=== PATIENT | female | born 1945 | race Caucasian/White ===

== ENCOUNTER 2019-06-30 20:16 | Inpatient (IN) | payer MEDICARE, OTHER ==
[~2019-06-30] VITALS: Ht 167.6 cm; Wt 49.0 kg
[~2019-06-30 20:16] MED LIST: AMLO5TAB10 PO; ASCO500C PO; ASPI81TA50 PO; CARV6.2511 PO; DIVA500T2 PO; DONE10TA7 PO; L-THYROXINE; MEMA10TA PO; MULT-650 PO; SOLI5TAB2 PO; VITA1TAB19 PO; [UNRECOGNIZED DRUG - OTHER]; [UNRECOGNIZED DRUG - OTHER]
[2019-06-30 21:30] VITALS: BP 174/94
[2019-06-30] MEDS ORDERED: fentaNYL PF VIAL 100 MCG/2 ML VIAL IVP PRN (22:15)
[2019-06-30] MEDS ORDERED: hydrALAZINE 20 MG/ML VIAL. IVP PRN (22:15)
[2019-06-30] MEDS: IV NORMAL SALINE 1000ML BAG 1,000 ML IV SCH (22:26)
[2019-06-30 23:00] VITALS: BP 149/86
[2019-07-01] VITALS (10 sets, daily range): BP systolic 94–166; BP diastolic 49–80
[2019-07-01] MEDS ORDERED: MORPHINE SULFATE 5 MG, KETOROLAC 30MG VIAL 30 MG, ROPIVacaine 0.5% PF 60 ML, EPINEPHrin... INT ART ONE ×5 (07:30)
[2019-07-01] MEDS ORDERED: ONDANSETRON PF 4 MG/2 ML VIAL. ONE (07:33)
[2019-07-01] MEDS ORDERED: PROPOFOL 20 ML IV ONE (07:33)
[2019-07-01] MEDS ORDERED: DEXAMETHASONE SOD PHOS 4 MG/ML VIAL ONE (07:33)
[2019-07-01] MEDS ORDERED: LIDOCAINE 2% PF 5 ML VIAL. ONE (07:33)
[2019-07-01] MEDS ORDERED: fentaNYL PF VIAL 250 MCG/5 ML VIAL ONE (07:36)
--- NOTE | 2019-07-01 08:09 | PDOC4 ---
Operative Note Operative Note Due to procedure: 07/01/2019 Surgeon: Robert Reyes.: Tabatha Parmar, [employer] certified internetwork expert Preoperative diagnosis: Closed, displaced, comminuted, left intertrochanteric h ip fracture Postoperative diagnosis: Same Procedure performed: Closed reduction and intramedullary nailing of left hip fracture Anesthesia: Gen. Findings: Acute fracture Blood loss: 200mL Complications: none Components inserted: 10 x 18 Moctezuma and nephew [employer] InterTAN 125 femoral nail, 105 mm lag screw, 100 mm compression screw, distal interlocking screw Reason for procedure: Patient is a very pleasant 74 yo female with dementia who had a ground-level fall sustaining the above injury. Id seen her in consultation, please see my consult note for full details. We have discussed the risks, benefits, and alternatives to the above surgery and family wished to proceed. Description of procedure: Patient was greeted in the preoperative area by myself for the correct extremity was verified and marked. She was taken to the operative suite and her antibiotics were started as she was brought back. Once in the operating room, she underwent successful induction of a general anesthetic and was then transferred gently supine to the fracture table. She was placed into the appropriate position, left leg in a traction ski boot and right leg in the well-leg adamson. Padded perineal post was used. Her arms were secured above her chest across a pillow. I then brought in C-arm and perform a reduction maneuver confirming adequate reduction under biplanar fluoroscopy. After this, the left hip and leg were prepped and draped in our usual sterile fashion and we conducted our standard preoperative timeout. After this, I palpated for her greater trochanter and ASIS and robert a line on skin at the intersection point of these, I then made my skin incision and bluntly dissected down to the tip of the greater trochanter and used biplanar fluoroscopy to identify an appropriate starting point for my guidepin which I then advanced down past the lesser trochanter. I then gained entry to the proximal femur with the entry reamer using the soft tissue protector. After this I impacted my nail and position using fluoroscopy as a guide. I then placed the lateral trocar again skin, and incised skin in accordance with this and bluntly split down to bone. I then seated the trochars and used biplanar fluoroscopy to achieve as close to a center center position with the tip of my guidepin as I was able to. I then used my lateral entry drill and then placed my derotation bar. I then measured and drilled for my leg screw. After this I placed my leg screw followed by my compression screw. I then removed this trocar and placed the distal interlocking screw trocar again skin and made a stab incision and spread down to bone. I then seated this trocar and drilled and measured and then subsequently placed my distal interlocking screw. I then remove the insertion handle and trochars and took my final images. I was satisfied with fracture reduction and hardware position. The wounds were thoroughly irrigated. I injected my periarticular m ixture into the eleonora-incisional soft tissues. Deep layers were closed with simple interrupted 0 Vicryl. Inverted interrupted 2-0 Vicryl was used for subcutaneous tissue and archana for skin. Sterile dressing was applied after the hip and leg were cleansed and dried. Traction was released after placement of the distal interlocking screw. The bed was reassembled and the perineal post was removed. She was laid gently supine on the fracture table. She was transferred gently supine to the hospital bed and taken to PACU in a stable and extubated condition. Postoperative plan is to allow full weightbearing. She will receive DVT and antibiotic prophylaxis. Shell be readmitted to the hospitalist and will also receive PT and OT. ROBERT WATTS II, MD Jul 01, 2019 08:09
[2019-07-01] MEDS ORDERED: SEVOFLURANE 61 TO 120 MINUTES. IH ONE (08:40)
[2019-07-01] MEDS ORDERED: IV RINGERS,LACTATED 1000ML 1,000 ML IV SCH (08:43)
[2019-07-01] MEDS ORDERED: fentaNYL PF VIAL 100 MCG/2 ML VIAL IV PRN ×2 (08:45)
[2019-07-01] MEDS ORDERED: HYDROmorphone 2 MG/ML VIAL IV PRN (08:45)
[2019-07-01] MEDS ORDERED: MORPHINE SULFATE 2 MG/ML VIAL. IV PRN (08:45)
[2019-07-01] MEDS ORDERED: LIDOCAINE 1% PF 2 ML VIAL. ID PRN (08:45)
[2019-07-01] MEDS ORDERED: PROCHLORPERAZINE 10 MG/2 ML VIAL. IV PRN (08:45)
[2019-07-01] MEDS ORDERED: ONDANSETRON PF 4 MG/2 ML VIAL. IV PRN (08:45)
--- NOTE | 2019-07-01 09:08 | PDOC2 ---
CONSULT Date of Consult Date of Consult DATE: 07/01/19 TIME: 08:12 Reason for Consult Reason for Consult: left hip fx Referring Physician Referring Physician: Villa Past Medical History Cardiovascular: CAD, HTN Pulmonary: COPD CENTRAL NERVOUS SYSTEM: Dementia GI: Diverticulosis Psych: Bipolar Musculoskeletal: Osteoarthritis Past Surgical History Past Surgical History: Hysterectomy Family History Family History: Heart Disease Social History No ALCOHOL: none Drugs: None Lives: with Family Current Medications Current Medications Current Medications Ondansetron HCl (Zofran) 4 mg PRN Q6HRS PRN IVP NAUSEA/VOMITING; Start 06/30/19 at 22:15 Fentanyl Citrate (Fentanyl 2ml Vial) 50 mcg PRN Q3HRS PRN IVP PAIN Last administered on 07/01/19at 06:24; Start 06/30/19 at 22:15 Sodium Chloride 1,000 ml @ 75 mls/hr [id number] IV Last administered on 06/30/19at 22:26; Start 06/30/19 at 22:15 Hydralazine HCl (Apresoline Inj) 10 mg PRN Q4HRS PRN IVP ELEVATED BP, SEE COMMENTS; Start 06/30/19 at 22:15 Morphine Sulfate 5 mg/Ketorolac Tromethamine 30 mg/Ropivacaine 60 ml/Epinephrine HCl 0.5 mg/Sodium Chloride 100 ml @ 100 mls/hr 1X ONCE INT ART ; Start 07/01/19 at 07:30; Stop 07/01/19 at 08:29 Cefazolin Sodium 50 ml @ 100 mls/hr 1X ONCE IV ; Start 07/01/19 at 07:30; Stop 07/01/19 at 07:59; Status DC Cefazolin Sodium (Ancef) 1 gm Q6H IVP ; Start 07/01/19 at 07:45; Stop 07/01/19 at 19:46; Status UNV Propofol 20 ml @ As Directed STK-MED ONCE IV ; Start 07/01/19 at 07:33; Stop 07/01/19 at 07:33; Status DC Lidocaine HCl (Lidocaine Pf 2% Vial) 5 ml STK-MED ONCE .ROUTE ; Start 07/01/19 at 07:33; Stop 07/01/19 at 07:33; Status DC Ondansetron HCl (Zofran) 4 mg STK-MED ONCE .ROUTE ; Start 07/01/19 at 07:33; Stop 07/01/19 at 07:33; Status DC Dexamethasone Sodium Phosphate (Decadron) 4 mg STK-MED ONCE .ROUTE ; Start 07/01/19 at 07:33; Stop 07/01/19 at 07:34; Status DC Fentanyl Citrate (Fentanyl 5ml Vial) 250 mcg STK-MED ONCE .ROUTE ; Start 07/01/19 at 07:36; Stop 07/01/19 at 07:36; Status DC Active Scripts Active Reported Aspir-Low (Aspirin) 81 Mg Tablet.dr 1 Tab PO HS B Complex (Vitamin B Complex) 1 Each Tablet 1 Tab PO DAILY 30 Days Vitamin C (Ascorbic Acid) 500 Mg Capsule.er 1,000 Mg PO DAILY Centrum Silver Women Tablet (Multivits-Min/Iron/FA/Lutein) 1 Each Tablet 1 Each PO DAILY [L-Thyroxine] 25MG 25 Mg DAILY Carvedilol (Carvedilol) 6.25 Mg Tablet 6.25 Mg PO BIDWMEALS Amlodipine Besylate 5 Mg Tablet 5 Mg PO DAILY Allergies Allergies: Coded Allergies: No Known Drug Allergies (Unverified , 06/27/19) ROS Review of System Unable to obtain reliably secondary to patient's dementia Physical Exam General: Alert, Oriented X3, No acute distress HEENT: Atraumatic, EOMI Lungs: Other (respirations are unlabored with symmetric chest rise) Heart: Regular rate Abdomen: Soft, No tenderness Extremities: No edema, Normal pulses Neuro: Normal speech, Other (she does not follow commands reliably enough to assess strength or sensation) Psych/Mental Status: Mood NL, Other (she no she is in the hospital, does not answer much else) MUSCULOSKELETAL: Other (examination of her left lower extremity reveals it is shorter and externally rotated. Her toes are pink and warm. Examination of her left upper extremity and shoulder girdle reveals mild swelling and tenderness over the medial left clavicle. She has a superficial abrasion over posterior left elbow and pain with any range of motion at her elbow. No tenderness at hand or wrist) Vitals VITALS Vital Signs Date Time Temp Pulse Resp B/P (MAP) Pulse Ox O2 Delivery O2 Flow Rate FiO2 07/01/19 07:31 Nasal Cannula 07/01/19 06:24 1.0 07/01/19 03:00 97.9 74 18 166/76 (106) 97 97.[address] was reviewed. Clavicle x-rays were interpreted by myself as per elbow and hip x-rays. She has a nondisplaced medial clavicle fracture. Likely radial neck fracture on the left side as well. She has a comminuted intertrochanteric hip fracture on the left side as well. Assessment/Plan Assessment/Plan I did discuss with family that her clavicle and likely radial neck fracture do not require any treatment I does then rest and immobilization in a sling. We did talk about the risks, benefits, and alternatives to proceeding with intramedullary nailing of her left hip fracture in the elected to proceed. IRMA WATTS II, MD Jul 01, 2019 09:08
[2019-07-01] MEDS: IV NORMAL SALINE 1000ML BAG 1,000 ML IV SCH ×2 (11:35→23:10)
[2019-07-01 11:51] LABS: HEMATOCRIT 34.4 % (36.0-47.0); HEMOGLOBIN 11.2 g/dL (12.0-15.5); RED BLOOD COUNT 3.44 x10^6/uL (3.50-5.40); RED CELL DISTRIBUTION WIDTH 13.2 % (11.5-14.5); WHITE BLOOD COUNT 12.8 x10^3/uL (4.0-11.0)
--- NOTE | 2019-07-01 11:56 | HP ---
ADMIT DATE: 06/30/2019 HISTORY OF PRESENT ILLNESS: The patient is a 74-year-old female patient who was discharged from [facility] yesterday. Apparently, she was extensively investigated for pancreatitis and underwent multiple imaging modalities without any obvious explanation. We actually spoke with the pharmacist and it turned out that her Aricept, Namenda, and Depakote can cause pancreatitis and we discontinued them. Apparently with her , they were getting out of the car when she fell with her wrist up on the grass and waist down on the concrete. Her said that she was acting at her baseline, does not know if she had loss of consciousness. She was brought to the Emergency Room of [facility] where she was investigated and CT scan of the head and cervical spine were unremarkable. Her x-ray of the left elbow showed that there is elevation of the anterior fat pad of the elbow, likely elbow joint effusion, probably occult fracture, possibly of the radius head and x-ray of her left hip showed that the patient has mild displaced intertrochanteric fracture of the left femur and therefore the patient was transferred to [facility] with a closed left clavicular fracture and left intertrochanteric mildly displaced fracture of the left femur to consult the orthopedic surgeon for definitive surgical treatment. PAST MEDICAL HISTORY: Significant for chronic obstructive pulmonary disease, hypertension, coronary artery disease, status post myocardial infarction. According to , has dementia, hypothyroidism, and overactive bladder. PAST SURGICAL HISTORY: Significant for total abdominal hysterectomy, bilateral salpingo-oophorectomy, appendectomy, tonsillectomy. She has esophagogastroduodenoscopy as well as colonoscopy. ALLERGIES: She has no known drug allergies. FAMILY HISTORY: She has 3 sisters, one at age of 85 because of cerebral aneurysm and one brother of Alzheimer disease. Her mother of Alzheimer disease. Father of throat cancer. SOCIAL HISTORY: She is , has 1 daughter. Quit smoking about 5-10 years ago. She does not drink alcohol or do recreational drugs. She runs a grocery shop. REVIEW OF SYSTEMS: As per history of present illness. MEDICATIONS: She was on following medications, she was discharged; carvedilol 6.25 mg once a day, amlodipine 5 mg once a day, aspirin 81 mg once a day, B complex 1 tablet once a day, ascorbic acid 500 mg once a day, levothyroxine 25 mcg once a day, and multivitamin with mineral 1 tablet once a day. We have discontinued her Namenda, Aricept, and Depakote. PHYSICAL EXAMINATION: GENERAL: On arrival to the hospital, the patient looked pale. No jaundice, cyanosis, or thyromegaly. No jugular venous distension. No limb edema. VITAL SIGNS: Her heart rate was 70, blood pressure was 149/86, temperature was 97.8, respiratory rate was 18, and oxygen saturation was 95% on 1 liter of oxygen. HEAD, EYES, EARS, NOSE, AND THROAT: Showed normocephalic, atraumatic. NECK: Supple. HEART: Showed normal first and second heart sounds. No gallop or murmur. CHEST: Clear to auscultation. No crepitation or rhonchi. ABDOMEN: Distended, soft, nontender. NEUROLOGIC: She is demented without any obvious lateralizing sign. EXTREMITIES: She moves all extremities without difficulty. She was unable to move her left hip because of pain. LABORATORY DATA: Done at [facility] showed a white cell count 6800, hemoglobin 13, hematocrit 41, MCV 101, and platelet count of 164,000. Her chemistry showed a serum sodium 143, potassium 5.1, chloride 105, bicarbonate 30, anion gap of 8, BUN 46, creatinine was 1.7, estimated GFR was 29 mL per minute. Her glucose 128, calcium was 8.7, magnesium 2. Total bilirubin and alkaline phosphatase normal. AST, ALT slightly elevated. Her lipase was 367. Total protein 6, albumin was 2.8. Her prothrombin time, INR, and aPTT are normal. Urinalysis was essentially unremarkable. Her CT scan of the head and cervical spine showed no acute intracranial abnormality, mildly displaced fracture through the medial left clavicle with surrounding edema and hematoma, which extends up into the left lateral neck superficial subcutaneous tissue. There is no fracture or malalignment identified in the cervical spine. Left elbow showed there is elevation of the anterior fat pad of the elbow, likely elbow joint effusion, probably occult fracture, possibly of the radius head. Her chest x-ray showed no acute radiographic abnormality identified, although likely mild left base atelectasis. Bilateral femoral heads within the acetabula. There is mild lateral posterior displaced intertrochanteric fracture of the left femur and there is redemonstration of a mildly displaced fracture through the medial left clavicle. No other fractures are seen. Soft tissues unremarkable. Joint spaces are well maintained. PLAN: The patient was transferred to [facility]. We did consult the orthopedic surgeon for definitive surgical treatment. ARABELLA ALCANTAR MD DR: LINDA/ruel JOB#: [id number] / [id number]
[2019-07-01 12:09] LABS: CALCIUM 8.2 mg/dL (8.5-10.1); CREATININE 1.3 mg/dL (0.6-1.0); POTASSIUM 4.8 mmol/L (3.5-5.1)
[2019-07-01 12:14] LABS: ALBUMIN 2.3 g/dL (3.4-5.0); ALBUMIN/GLOBULIN RATIO 0.8 (1.0-1.7); TOTAL BILIRUBIN 0.3 mg/dL (0.2-1.0); TOTAL PROTEIN 5.2 g/dL (6.4-8.2)
[2019-07-01] MEDS: ceFAZolin SODIUM IV Push 1 GM VIAL. IVP SCH ×2 (13:34→19:47)
[2019-07-01] MEDS ORDERED: WARFARIN 5 MG TABLET. PO ONE (16:00)
[2019-07-01] MEDS: ONDANSETRON PF 4 MG/2 ML VIAL. IVP PRN (23:09)
[2019-07-02] MEDS: ceFAZolin SODIUM IV Push 1 GM VIAL. IVP SCH (02:52)
[2019-07-02 03:15] VITALS: BP 116/66
[2019-07-02 07:00] VITALS: BP 129/66
--- NOTE | 2019-07-02 09:37 | PN ---
DATE: 07/02/2019 SUBJECTIVE: The patient is sitting propped up in bed, eating her breakfast comfortably, in no apparent distress. On questioning her, denied any complaint, particularly denied any abdominal pain. Denied nausea or vomiting. She managed to get out of the bed to chair yesterday and nursing staff did not voice any concerns that she had an uneventful night. PHYSICAL EXAMINATION: GENERAL: When I examined her, she looked pale, but no jaundice, cyanosis or thyromegaly. No jugular venous distention. No limb edema. VITAL SIGNS: Her heart rate was 63, blood pressure was 116/66, temperature was 97.4, respiratory rate was 18 and oxygen saturation was 98% on 2 liters of oxygen. HEAD, EYES, EARS, NOSE AND THROAT: Showed normocephalic, atraumatic. NECK: Supple. HEART: Showed normal first and second heart sounds. No gallop or murmur. CHEST: Clear to auscultation. No crepitation or rhonchi. ABDOMEN: Distended, soft, nontender. NEUROLOGIC: She is demented, but without any obvious lateralizing sign. All cranial nerves are intact. She moves extremities without difficulty. Her intake over the last 24 hours and output are incompletely recorded. No lab works were ordered this morning. ASSESSMENT: 1. Closed displaced comminuted left intertrochanteric hip fracture, status post closed reduction with intramedullary nailing of the left hip fracture. 2. Other medical problems include chronic obstructive pulmonary disease. 3. Hypertension. 4. Coronary artery disease, status post myocardial infarction. 5. Hypothyroidism. 6. Dementia. 7. Overactive bladder. PLAN: To continue with pain management. Continue with physical and occupational therapy and repeat labs tomorrow. She eventually will need to be admitted to a snf facility to continue the process of rehabilitation. She obviously needs to check also her daily prothrombin time for DVT prophylaxis. ARABELLA ALCANTAR MD DR: LINDA/ruel JOB#: [id number] / [id number]
[2019-07-02] MEDS: LEVOTHYROXINE 25 MCG TABLET. PO SCH (09:39)
[2019-07-02] MEDS: MULTIVITAMIN with MINERAL TABLET. PO SCH (09:39)
[2019-07-02] MEDS: VITAMIN B COMPLEX TABLET. PO SCH (09:39)
[2019-07-02] MEDS: ASCORBIC ACID 500 MG TABLET PO SCH (09:39)
[2019-07-02] MEDS: amLODIPine BESYLATE 5 MG TABLET PO SCH (09:40)
[2019-07-02] MEDS: CARVEDILOL 6.25 MG TABLET. PO SCH ×2 (09:40→16:26)
[2019-07-02] MEDS: HYDROcodone/APAP 5/325MG 1 TAB TABLET PO PRN (09:42)
[2019-07-02 11:00] VITALS: BP 102/63
[2019-07-02 13:43] LABS: PROTHROMBIN TIME PATIENT 14.3 SEC (11.7-14.0)
[2019-07-02] MEDS: IV NORMAL SALINE 1000ML BAG 1,000 ML IV SCH (14:15)
[2019-07-02 15:00] VITALS: BP 107/59
[2019-07-02] MEDS ORDERED: WARFARIN 5 MG TABLET. PO ONE (16:00)
[2019-07-02 19:30] VITALS: BP 132/69
[2019-07-02] MEDS: ASPIRIN ENTERIC COATED 81 MG TABLET.DR. PO SCH (20:18)
[2019-07-02 23:30] VITALS: BP 148/78
[2019-07-03] VITALS (7 sets, daily range): BP systolic 121–184; BP diastolic 63–93
[2019-07-03] MEDS: IV NORMAL SALINE 1000ML BAG 1,000 ML IV SCH ×2 (03:35→16:55)
[2019-07-03] MEDS: LEVOTHYROXINE 25 MCG TABLET. PO SCH (05:53)
[2019-07-03 07:12] LABS: HEMATOCRIT 27.7 % (36.0-47.0); HEMOGLOBIN 9.3 g/dL (12.0-15.5); RED BLOOD COUNT 2.77 x10^6/uL (3.50-5.40); RED CELL DISTRIBUTION WIDTH 13.2 % (11.5-14.5); WHITE BLOOD COUNT 8.9 x10^3/uL (4.0-11.0)
[2019-07-03 07:21] LABS: CALCIUM 7.8 mg/dL (8.5-10.1); GFR 54.2; POTASSIUM 4.6 mmol/L (3.5-5.1)
[2019-07-03 07:22] LABS: PROTHROMBIN TIME PATIENT 20.8 SEC (11.7-14.0)
[2019-07-03] MEDS ORDERED: ACETAMINOPHEN 325 MG TABLET. PO PRN (08:15)
[2019-07-03] MEDS: HYDROcodone/APAP 5/325MG 1 TAB TABLET PO PRN (08:40)
[2019-07-03] MEDS: MULTIVITAMIN with MINERAL TABLET. PO SCH (08:40)
[2019-07-03] MEDS: CARVEDILOL 6.25 MG TABLET. PO SCH ×2 (08:40→17:40)
[2019-07-03] MEDS: ASCORBIC ACID 500 MG TABLET PO SCH (08:40)
[2019-07-03] MEDS: amLODIPine BESYLATE 5 MG TABLET PO SCH (08:41)
[2019-07-03] MEDS: VITAMIN B COMPLEX TABLET. PO SCH (08:41)
--- NOTE | 2019-07-03 09:55 | PN ---
DATE: 07/03/2019 SUBJECTIVE: The patient is sitting at the edge of the bed comfortably in no apparent distress. She denied any complaint; however, nursing staff stated that she has a low-grade fever up to 99.1. PHYSICAL EXAMINATION: GENERAL: When I examined her, she was pale, not jaundiced, cyanosed or thyromegaly. No jugular venous distension. No limb edema. VITAL SIGNS: Her heart rate was 76, blood pressure was 156/78, temperature was 99.1, respiratory rate was 18 and oxygen saturation was 95% on room air. HEAD, EYES, EARS, NOSE AND THROAT: Showed normocephalic, atraumatic. NECK: Supple. HEART: Showed normal first and second heart sounds with no gallop, rub or murmur. CHEST: Clear to auscultation. No crepitation or rhonchi. ABDOMEN: Distended, soft, nontender. No guarding or rigidity. No organomegaly. All hernial orifices intact. Bowel sounds normal. NEUROLOGIC: She is demented and somewhat confused; however, all her cranial nerves are intact. She moves extremities without difficulty. She is weightbearing as tolerated. Her intake over the last 24 hours was 1630, output was 600. LABORATORY DATA: Her lab work this morning showed her white cell count was 8900, hemoglobin 9.3, hematocrit 27.7, MCV 100, and platelet count of 118,000. Her chemistry showed serum sodium 143, potassium 4.6, chloride 108, bicarbonate 28, anion gap of 7, BUN 31, creatinine 1, estimated GFR was 54 mL per minute. Her glucose was 92 and calcium was 7.1. Her lipase was 212. Her prothrombin time was 20.8, INR 1.8. ASSESSMENT: 1. Closed displaced comminuted left intertrochanteric hip fracture, status post closed reduction and intramedullary nailing of the left hip fracture. 2. Other medical problems include: A. Chronic obstructive pulmonary disease. B. Hypertension. C. Coronary artery disease, status post myocardial infarction. D. Hypothyroidism. E. Dementia. F. Overactive bladder. PLAN: To continue with pain management. Continue with physical and occupational therapy. Continue with DVT prophylaxis. We will probably discharge her to [facility] tomorrow. ARABELLA ALCANTAR MD DR: LINDA/ruel JOB#: [id number] / [id number]
--- NOTE | 2019-07-03 10:52 | PDOC ---
ORTHO PROGRESS NOTES Subjective Patient sitting up in chair at bedside with no complaint of pain. Post-op Day: 2 Procedure IM Nail Left Hip Fracture Vitals Vital Signs Date Time Temp Pulse Resp B/P (MAP) Pulse Ox O2 Delivery O2 Flow Rate FiO2 07/03/19 08:41 86 184/93 07/03/19 08:40 Nasal Cannula 2.0 07/03/19 07:00 100.0 16 95 100.0 Labs Laboratory Tests Test 07/01/19 11:42 07/02/19 13:15 07/03/19 06:05 07/03/19 06:15 White Blood Count 12.8 x10^3/uL (4.0-11.0) 8.9 x10^3/uL (4.0-11.0) Red Blood Count 3.44 x10^6/uL (3.50-5.40) 2.77 x10^6/uL (3.50-5.40) Hemoglobin 11.2 g/dL (12.0-15.5) 9.3 g/dL (12.0-15.5) Hematocrit 34.4 % (36.0-47.0) 27.7 % (36.0-47.0) Mean Corpuscular Volume 100 fL (79-100) 100 fL (79-100) Mean Corpuscular Hemoglobin 33 pg (25-35) 34 pg (25-35) Mean Corpuscular Hemoglobin Concent 33 g/dL (31-37) 33 g/dL (31-37) Red Cell Distribution Width 13.2 % (11.5-14.5) 13.2 % (11.5-14.5) Platelet Count 130 x10^3/uL (140-400) 118 x10^3/uL (140-400) Sodium Level 141 mmol/L (136-145) 143 mmol/L (136-145) Potassium Level 4.8 mmol/L (3.5-5.1) 4.6 mmol/L (3.5-5.1) Chloride Level 107 mmol/L (98-107) 108 mmol/L (98-107) Carbon Dioxide Level 23 mmol/L (21-32) 28 mmol/L (21-32) Anion Gap 11 (6-14) 7 (6-14) Blood Urea Nitrogen 41 mg/dL (7-20) 31 mg/dL (7-20) Creatinine 1.3 mg/dL (0.6-1.0) 1.0 mg/dL (0.6-1.0) Estimated GFR (Cockcroft-Gault) 40.0 54.2 BUN/Creatinine Ratio 32 (6-20) Glucose Level 128 mg/dL (70-99) 92 mg/dL (70-99) Calcium Level 8.2 mg/dL (8.5-10.1) 7.8 mg/dL (8.5-10.1) Total Bilirubin 0.3 mg/dL (0.2-1.0) Aspartate Amino Transf (AST/SGOT) 30 U/L (15-37) Alanine Aminotransferase (ALT/SGPT) 47 U/L (14-59) Alkaline Phosphatase 60 U/L (46-116) Total Protein 5.2 g/dL (6.4-8.2) Albumin 2.3 g/dL (3.4-5.0) Albumin/Globulin Ratio 0.8 (1.0-1.7) Prothrombin Time 14.3 SEC (11.7-14.0) 20.8 SEC (11.7-14.0) Prothromb Time International Ratio 1.1 (0.8-1.1) 1.8 (0.8-1.1) Lipase 212 U/L (73-393) Laboratory Tests Test 07/02/19 13:15 07/03/19 06:05 07/03/19 06:15 Prothrombin Time 14.3 SEC (11.7-14.0) 20.8 SEC (11.7-14.0) Prothromb Time International Ratio 1.1 (0.8-1.1) 1.8 (0.8-1.1) Sodium Level 143 mmol/L (136-145) Potassium Level 4.6 mmol/L (3.5-5.1) Chloride Level 108 mmol/L (98-107) Carbon Dioxide Level 28 mmol/L (21-32) Anion Gap 7 (6-14) Blood Urea Nitrogen 31 mg/dL (7-20) Creatinine 1.0 mg/dL (0.6-1.0) Estimated GFR (Cockcroft-Gault) 54.2 Glucose Level 92 mg/dL (70-99) Calcium Level 7.8 mg/dL (8.5-10.1) Lipase 212 U/L (73-393) White Blood Count 8.9 x10^3/uL (4.0-11.0) Red Blood Count 2.77 x10^6/uL (3.50-5.40) Hemoglobin 9.3 g/dL (12.0-15.5) Hematocrit 27.7 % (36.0-47.0) Mean Corpuscular Volume 100 fL (79-100) Mean Corpuscular Hemoglobin 34 pg (25-35) Mean Corpuscular Hemoglobin Concent 33 g/dL (31-37) Red Cell Distribution Width 13.2 % (11.5-14.5) Platelet Count 118 x10^3/uL (140-400) Notes Awake and alert sitting up in chair at bedside Assessment and Plan POD # 2 S/P Left Hip IM Nail motor and sensation intact distally on left leg dressings dry and intact calf soft and non tender PT as tolerated. JUSTIN DELANEY APRN Jul 03, 2019 10:52
[2019-07-03] MEDS ORDERED: WARFARIN 2.5 MG TABLET. PO ONE (16:00)
[2019-07-03] MEDS: ASPIRIN ENTERIC COATED 81 MG TABLET.DR. PO SCH (21:36)
[2019-07-04 03:00] VITALS: BP 153/75
[2019-07-04] MEDS: LEVOTHYROXINE 25 MCG TABLET. PO SCH (05:51)
[2019-07-04] MEDS: IV NORMAL SALINE 1000ML BAG 1,000 ML IV SCH (06:15)
[2019-07-04 07:00] VITALS: BP 148/94
[2019-07-04] MEDS: amLODIPine BESYLATE 5 MG TABLET PO SCH (08:03)
[2019-07-04] MEDS: MULTIVITAMIN with MINERAL TABLET. PO SCH (08:03)
[2019-07-04] MEDS: CARVEDILOL 6.25 MG TABLET. PO SCH (08:03)
[2019-07-04] MEDS: VITAMIN B COMPLEX TABLET. PO SCH (08:03)
[2019-07-04] MEDS: ASCORBIC ACID 500 MG TABLET PO SCH (08:03)
[2019-07-04] MEDS: HYDROcodone/APAP 5/325MG 1 TAB TABLET PO PRN (08:05)
[2019-07-04] MEDS ORDERED: WARF2.5T83 PO (08:52)
[2019-07-04] MEDS ORDERED: HYDR-2761 PO (08:52)
[2019-07-04] MEDS ORDERED: ACET325T9 PO (08:52)
--- NOTE | 2019-07-04 09:00 | SNU/HH DC ---
DISCHARGE ORDERS DISCHARGE INFORMATION: DISCHARGE DATE: Jul 04, 2019 FINAL DIAGNOSIS LEFT INTROCHANTERIC HIP FRACTURE CONDITION ON DISCHARGE: Stable CODE STATUS: Code Status: Full M[facility]: SNF STAY <30 DAYS: Yes POST DISCHARGE ORDERS: WEIGHT BEARING STATUS: Full weight bearing DIET AFTER DISCHARGE: Regular TREATMENT/EQUIPMENT ORDERS: ADAPTIVE EQUIPMENT NEEDED: Walker Physical Therapy For: Evalulation/Treatment Occupational Therapy For: Evaluation/Treatment DISCHARGE MEDICATIONS: Home Meds Active Scripts Hydrocodone Bit/Acetaminophen (HYDROCODONE-APAP 5-325 ) 1 Tab Tablet, 1 TAB PO PRN Q6HRS PRN for PAIN for 30 Days, #120 TAB 0 Refills Prov:ARABELLA ALCANTAR MD 07/04/19 Acetaminophen (TYLENOL) 325 Mg Tablet, 650 MG PO Q4H for PAIN for 30 Days, #360 TAB Prov:ARABELLA ALCANTAR MD 07/04/19 Warfarin Sodium (COUMADIN) 2.5 Mg Tablet, 1 TAB PO DAILY for DVT for 30 Days, #30 TAB Prov:ARABELLA ALCANTAR MD 07/04/19 Reported Medications Aspirin (ASPIR-LOW) 81 Mg Tablet.dr, 1 TAB PO HS for CIRCULATION, #30 TAB 3 Re fills 06/27/19 Vitamin B Complex (B COMPLEX) 1 Each Tablet, 1 TAB PO DAILY for SUPPLEMENT for 30 Days, #30 TAB 0 Refills 06/27/19 Ascorbic Acid (VITAMIN C) 500 Mg Capsule.er, 1000 MG PO DAILY for SUPPLEMENT, CAP.SR 06/27/19 Multivits-Min/Iron/FA/Lutein (Centrum Silver Women Tablet) 1 Each Tablet, 1 EACH PO DAILY for SUPPLEMENT, TAB 06/27/19 [L-Thyroxine] 25MG No Conflict Check, 25 MG DAILY for SUPPLEMENT 06/27/19 Carvedilol (CARVEDILOL ) 6.25 Mg Tablet, 6.25 MG PO BIDWMEALS for CARDIAC, TAB 06/27/19 Amlodipine Besylate (AMLODIPINE BESYLATE) 5 Mg Tablet, 5 MG PO DAILY for HTN, TAB 06/27/19 Discontinued Reported Medications Donepezil Hcl (DONEPEZIL HCL) 10 Mg Tablet, 1 TAB PO HS for MEMORY, #90 TAB 1 Refill 06/27/19 Divalproex Sodium (DEPAKOTE) 500 Mg Tablet.dr, 500 MG PO HS for BIPOLAR, TAB 06/27/19 [A-2400 Mcg] No Conflict Check, 2400 MCG DAILY 06/27/19 [D3 50MCG] No Conflict Check, 50 MCG DAILY 06/27/19 Solifenacin Succinate (VESICARE) 5 Mg Tablet, 5 MG PO DAILY for oab, TAB 06/27/19 Memantine Hcl (NAMENDA) 10 Mg Tablet, 1 TAB PO BID for MEMORY, #180 TAB 1 Refill 06/27/19 ARABELLA ALCANTAR MD Jul 04, 2019 09:00
--- NOTE | 2019-07-04 09:16 | DS ---
DATE OF DISCHARGE: 07/04/2019 HOSPITAL COURSE: The patient is a 74-year-old female patient who apparently fell sustaining left intertrochanteric hip fracture. She was seen by the orthopedic surgeon and underwent closed reduction, and intramedullary nailing of the left hip fracture. She did extremely well, has been up and about and the plan was to discharge her to [facility] to continue with deep vein thrombosis prophylaxis, pain management, and to start the process of rehabilitation. PHYSICAL EXAMINATION: GENERAL: When I saw her this morning, she was resting slightly propped up in bed, in no apparent respiratory distress, pale, but no jaundice, cyanosis, or thyromegaly. No jugular venous distension. No limb edema. VITAL SIGNS: Her heart rate was 84, blood pressure 148/94, temperature was 98.6, respiratory rate was 18, and oxygen saturation was 97%. HEAD, EYES, EARS, NOSE, AND THROAT: Normocephalic, atraumatic. NECK: Supple. HEART: Showed normal first and second heart sounds. No gallop or murmur. CHEST: Clear to auscultation. No crepitation or rhonchi. ABDOMEN: Distended, soft, nontender. NEUROLOGIC: She is demented but without any obvious lateralizing sign. She ambulates with a walker. LABORATORY DATA: This morning showed a prothrombin time of 24. INR of 2.2, which is well within therapeutic range. Her white cell count was 8900, hemoglobin 9.3, hematocrit 27, MCV 100, and platelet count of 118,000. Her chemistry showed a serum sodium 143, potassium 4.6, chloride 108, bicarbonate 28, anion gap of 7, BUN 31, creatinine 1, estimated GFR was 54 mL per minute. Her glucose was 92, calcium was 7.8, and lipase was 212. DISCHARGE MEDICATIONS: She was discharged to [facility] to continue on acetaminophen 650 mg every 4 hours, hydrocodone/APAP 5/325 one tablet every 6 hours, Coumadin 2.5 mg once a day, amlodipine besylate 5 mg once a day, ascorbic acid 1000 mg once a day, aspirin low dose 81 mg once a day, and carvedilol 6.25 mg twice a day with meals. She is also on levothyroxine 25 mcg once a day, multivitamin with mineral 1 tablet once a day, and B complex tablets once a day. FINAL DISCHARGE DIAGNOSES: Fall with closed displaced comminuted left intertrochanteric hip fracture, status post closed reduction and intramedullary nailing of the left hip fracture. Other medical problems include chronic obstructive pulmonary disease; hypertension; coronary artery disease, status post myocardial infarction; dementia; hypothyroidism; and overactive bladder. ARABELLA ALCANTAR MD DR: LINDA/ruel JOB#: [id number] / [id number]
[2019-07-04 11:00] VITALS: BP 127/75
[2019-07-04] MEDS: ONDANSETRON PF 4 MG/2 ML VIAL. IVP PRN (11:13)
[2019-07-04] MEDS ORDERED: WARFARIN 2 MG TABLET. PO ONE (16:00)
== END 2019-07-04 14:40 | DRG 480 ==
LOC: 4 NORTH 21:27
PROVIDERS: ADMIT Internal Medicine; ATTEND Internal Medicine
PROC: 0QS736Z Reposition Left Upper Femur with Intramedullary Internal Fixation Device, Percutaneous Approach (ICD-10-PCS; principal; 2019-07-01 08:00)
DX: S72.142A Displaced intertrochanteric fracture of left femur, initial encounter for closed fracture (principal); E43 Unspecified severe protein-calorie malnutrition; Z68.1 Body mass index [BMI] 19.9 or less, adult; M19.90 Unspecified osteoarthritis, unspecified site; J44.9 Chronic obstructive pulmonary disease, unspecified; I10 Essential (primary) hypertension; I25.10 Atherosclerotic heart disease of native coronary artery without angina pectoris; F03.90 Unspecified dementia, unspecified severity, without behavioral disturbance, psychotic disturbance, mood disturbance, and anxiety; E03.9 Hypothyroidism, unspecified; F31.9 Bipolar disorder, unspecified; N32.81 Overactive bladder; W18.30XA Fall on same level, unspecified, initial encounter; Y93.89 Activity, other specified; Y92.89 Other specified places as the place of occurrence of the external cause; Y99.8 Other external cause status; I25.2 Old myocardial infarction; Z87.891 Personal history of nicotine dependence; Z90.710 Acquired absence of both cervix and uterus; Z90.79 Acquired absence of other genital organ(s); Z90.722 Acquired absence of ovaries, bilateral; Z82.0 Family history of epilepsy and other diseases of the nervous system; Z80.0 Family history of malignant neoplasm of digestive organs; Z82.49 Family history of ischemic heart disease and other diseases of the circulatory system
CPT/HCPCS: 36415; 76000; 80048; 80053; 83690; 85027; 85610; A7015; C1713; C1887; J0690; J1100; J2001; J2405; J2704; J3010; J7030; 97110; 97530; 97535; G0378

== ENCOUNTER 2019-11-04 15:04 | Emergency (ER) | payer MEDICARE, OTHER ==
[~2019-11-04] VITALS: Ht 160 cm; Wt 45.0 kg
[~2019-11-04 15:04] MED LIST changes: +ACET325T9 PO; +HYDR-2761 PO; +WARF2.5T83 PO
--- NOTE | 2019-11-04 15:15 | PHYS DOC ---
Past Medical History Smoking Status: Unknown if ever smoked Adult General HPI HPI Patient is a 74 year old female who presents with after falling around 11:30 AM after she got up without her granddaughter helping. The granddaughter usually helps her however she fell asleep. The patient has a history of Alzheimer's. EMS states that the patient is only on aspirin and that she fell on a wood floor at home. Patient is a complaint of right upper leg pain. Also fell and hit the right side of her face. Review of Systems Review of Systems Unable to obtain due to patient clinical condition. Current Medications Current Medications Current Medications Medications (Trade) Dose Ordered Sig/Clotilde Start Time Stop Time Status Last Admin Dose Admin Diphtheria/ Tetanus/Acell Pertussis (ADACEL TDap SYRINGE) 0.5 ml ONCE ONCE 11/04/19 16:00 11/04/19 16:01 DC Allergies Allergies Allergies Coded Allergies Type Severity Reaction Last Updated Verified No Known Drug Allergies 06/27/19 No Physical Exam Physical Exam Constitutional: Well developed, well nourished, no acute distress, non-toxic appearance. [] HENT: Normocephalic, atraumatic, bilateral external ears normal, oropharynx moist, no oral exudates, nose normal. [] Eyes: PERRLA, EOMI, conjunctiva normal, no discharge. [] Neck: Normal range of motion, no tenderness, supple, no stridor. [] Cardiovascular:Heart rate regular rhythm, no murmur [] Lungs & Thorax: Bilateral breath sounds clear to auscultation [] Back: No tenderness, no CVA tenderness. [] Extremities: Tenderness to right upper leg/hip. No swelling/edema noted. Neurologic: GCS of 14, normal motor function, normal sensory function, no focal deficits noted. [] Psychologic: Affect normal, judgement normal, mood normal. [] Current Patient Data Vital Signs Vital Signs Date Time Temp Pulse Resp B/P (MAP) Pulse Ox O2 Delivery O2 Flow Rate FiO2 11/04/19 15:30 67 18 Room Air 11/04/19 15:04 98.3 123/85 (98) 97 98.3 Lab Values Laboratory Tests Test 11/04/19 15:16 White Blood Count 8.2 x10^3/uL (4.0-11.0) Red Blood Count 3.68 x10^6/uL (3.50-5.40) Hemoglobin 11.3 g/dL (12.0-15.5) L Hematocrit 33.6 % (36.0-47.0) L Mean Corpuscular Volume 91 fL (79-100) Mean Corpuscular Hemoglobin 31 pg (25-35) Mean Corpuscular Hemoglobin Concent 34 g/dL (31-37) Red Cell Distribution Width 14.8 % (11.5-14.5) H Platelet Count 255 x10^3/uL (140-400) Neutrophils (%) (Auto) 70 % (31-73) Lymphocytes (%) (Auto) 20 % (24-48) L Monocytes (%) (Auto) 7 % (0-9) Eosinophils (%) (Auto) 3 % (0-3) Basophils (%) (Auto) 1 % (0-3) Neutrophils # (Auto) 5.7 x10^3/uL (1.8-7.7) Lymphocytes # (Auto) 1.7 x10^3/uL (1.0-4.8) Monocytes # (Auto) 0.5 x10^3/uL (0.0-1.1) Eosinophils # (Auto) 0.2 x10^3/uL (0.0-0.7) Basophils # (Auto) 0.0 x10^3/uL (0.0-0.2) Prothrombin Time 12.7 SEC (11.7-14.0) Prothrombin Time INR 1.0 (0.8-1.1) Activated Partial Thromboplast Time 28 SEC (24-38) Sodium Level 146 mmol/L (136-145) H Potassium Level 3.8 mmol/L (3.5-5.1) Chloride Level 110 mmol/L (98-107) H Carbon Dioxide Level 23 mmol/L (21-32) Anion Gap 13 (6-14) Blood Urea Nitrogen 17 mg/dL (7-20) Creatinine 1.4 mg/dL (0.6-1.0) H Estimated GFR (Cockcroft-Gault) 36.8 BUN/Creatinine Ratio 12 (6-20) Glucose Level 133 mg/dL (70-99) H Calcium Level 8.5 mg/dL (8.5-10.1) Total Bilirubin 0.3 mg/dL (0.2-1.0) Aspartate Amino Transferase (AST) 19 U/L (15-37) Alanine Aminotransferase (ALT) 17 U/L (14-59) Alkaline Phosphatase 82 U/L (46-116) Troponin I Quantitative < 0.017 ng/mL (0.000-0.055) Total Protein 5.8 g/dL (6.4-8.2) L Albumin 2.5 g/dL (3.4-5.0) L Albumin/Globulin Ratio 0.8 (1.0-1.7) L Laboratory Tests 11/04/19 15:16 Laboratory Tests 11/04/19 15:16 EKG EKG EKG interpreted by Dr. Hinojosa Rate of 82, patient was moving during EKG, No STEMI. Radiology/Procedures Radiology/Procedures [address] [id number] IMAGING REPORT Signed PATIENT: BRIAN SUEROACCOUNT: [id number] : 1945 LOCATION: ER AGE: 74 SEX: F EXAM STATUS: PRE ER ORD. PHYSICIAN: ANGELA RODRÍGUEZ APRN REASON: fall PROCEDURE: RIGHT FEMUR XRAY Examination: Frontal view of the pelvis, 2views of the right femur HISTORY: History of fall COMPARISON: None available. Findings/ impression: Bilateral femoral heads are within the acetabula. Moderate degenerative changes bilateral hip joints. Left-sided femoral hardware identified. No obvious acute fracture the right femur. Chondrocalcinosis medial, lateral compartments. Electronically signed by: Mauricio Barton MD (11/04/2019 4:12 PM) [id number] DICTATED and SIGNED BY: MAURICIO BARTON MD DATE: 11/04/[address] [id number] IMAGING REPORT Signed PATIENT: BRIAN SUEROACCOUNT: [id number] : 1945 LOCATION: ER AGE: 74 SEX: F EXAM STATUS: PRE ER ORD. PHYSICIAN: ANGELA RODRÍGUEZ APRN REASON: fall PROCEDURE: CT HEAD AND CERVICAL SPINE WO Exam: CT head and cervical spine without contrast INDICATION: Fall TECHNIQUE: Sequential axial images through the head and cervical spine were obtained without the administration of IV contrast. Comparisons: None FINDINGS: Head: No focal parenchymal lesion or hemorrhage is identified. There is no midline shift or sulcal effacement. Patchy hypodensity within the periventricular white matter. No acute vascular territory infarction is identified. Mobley-white distinction is preserved. The ventricular system is within normal limits without compression hydrocephalus. The basal cisterns are well maintained. The visualized portions of the paranasal sinuses and mastoid air cells are well-pneumatized. No acute fractures. Cervical spine: Straightening of the cervical spine. Vertebral body heights are well-maintained. Fracture to the cervical spine is not identified. Mildly displaced fracture through the medial left clavicle., Chronic in appearance. Multilevel spondylotic change in cervical spine with degenerative disc disease greatest at C4-C5, C5-C6 and C6-C7. Mild bilateral facet arthropathy throughout cervical spine. Visualized paraspinal soft tissues are unremarkable. IMPRESSION: 1. No acute intracranial abnormality. 2. Negative CT C-spine for acute traumatic injury. Exposure: One or more of the following in the visualized dose reduction techniques were utilized for this examination: 1. Automated exposure control 2. Adjustment of the MA and/or KV according to patient size Use of iterative of reconstructive technique Electronically signed by: Georgia Medrano MD (11/04/2019 4:26 PM) [id number] DICTATED and SIGNED BY: GEORGIA MEDRANO MD DATE: 11/04/19 1626 [][facility] [address] [place] [address] IMAGING REPORT Signed PATIENT: BRIAN SUEROACCOUNT: [id number] : 1945 LOCATION: ER AGE: 74 SEX: F EXAM STATUS: PRE ER ORD. PHYSICIAN: ANGELA RODRÍGUEZ APRN REASON: fall PROCEDURE: PORTABLE CHEST 1V EXAM: CHEST 1 VIEW History: Fall COMPARISON: None available. TECHNIQUE: Single portable radiograph of the chest Findings/impression The cardiac silhouette is unremarkable. Hyperinflated lungs likely changes of COPD. The costophrenic sulci are clear and well demarcated. Mild prominent bilateral interstitial lung markings likely chronic interstitial changes. Mild linear right lung base airspace opacities likely atelectasis or infiltrate. Electronically signed by: Mauricio Barton MD (11/04/2019 4:08 PM) [id number] DICTATED and SIGNED BY: MAURICIO BARTON MD DATE: 11/04/19 1608 Course & Med Decision Making Course & Med Decision Making Pertinent Labs and Imaging studies reviewed. (See chart for details) We will obtain imaging and get labs. Will give tetanus shot to the patient has unknown when last tetanus shot was. Imaging is unremarkable, labs show no acute changes. Creatinine is 1.4 however is been 1.4 in the past. We will discharge the patient home to follow-up with primary care. Dragon Disclaimer Dragon Disclaimer This electronic medical record was generated, in whole or in part, using a voice recognition dictation system. Departure Departure Impression: Primary Impression: Fall Disposition: 01 HOME, SELF-CARE Condition: STABLE Referrals: JC DAN APRN (PCP) Patient Instructions: Fall Prevention and Home Safety Additional Instructions: Thank you for visiting [facility]. We appreciate you trusting us with your care. If any additional problems come up don't hesitate to return to visit us. Please follow up with your primary care provider so they can plan additional care if needed and know about the problem that you had. If symptoms worsen come back to the Emergency Department. Any concerning symptoms that start such as chest pain, shortness of air, weakness or numbness on one side of the body, running high fevers or any other concerning symptoms return to the ER. Problem Qualifiers Primary Impression: Fall Encounter type: initial encounter Qualified Codes: W19.XXXA - Unspecified fall, initial encounter ANGELA RODRÍGUEZ APRN Nov 04, 2019 15:15
[2019-11-04 15:27] LABS: BASO % 1 % (0-3); EOS # 0.2 x10^3/uL (0.0-0.7); EOS % 3 % (0-3); HEMATOCRIT 33.6 % (36.0-47.0); HEMOGLOBIN 11.3 g/dL (12.0-15.5); LYMPH # 1.7 x10^3/uL (1.0-4.8); LYMPH % 20 % (24-48); MEAN CORPUSCULAR HEMOGLOBIN 31 pg (25-35); MEAN CORPUSCULAR HGB CONC 34 g/dL (31-37); MEAN CORPUSCULAR VOLUME 91 fL (79-100); MONO # 0.5 x10^3/uL (0.0-1.1); MONO % 7 % (0-9); NEUT # 5.7 x10^3/uL (1.8-7.7); NEUT % 70 % (31-73); PLATELET COUNT 255 x10^3/uL (140-400); RED BLOOD COUNT 3.68 x10^6/uL (3.50-5.40); RED CELL DISTRIBUTION WIDTH 14.8 % (11.5-14.5); WHITE BLOOD COUNT 8.2 x10^3/uL (4.0-11.0)
[2019-11-04 15:34] LABS: CALCIUM 8.5 mg/dL (8.5-10.1); CREATININE 1.4 mg/dL (0.6-1.0); GFR 36.8; POTASSIUM 3.8 mmol/L (3.5-5.1)
--- NOTE | 2019-11-04 15:37 | EKG ---
[facility] [address] [place] [address] Test Date: 2019-11-04 Test Time: 15:33:06 Pat Name: BRIAN SUERO Department: Room: Gender: F Side Panel Padder: : 1945 Requested By: ANGELA RODRÍGUEZ Order Number: [id number] Reading MD: Measurements Intervals [place] Rate: 81 P: [place]: QRS: 116 QRSD: 98 T: -156 QT: 362 QTc: 425 Interpretive Statements ATRIAL FIBRILLATION VENTRICULAR PREMATURE COMPLEX(ES) ABNORMAL RIGHT AXIS DEVIATION QRS(T) CONTOUR ABNORMALITY CONSISTENT WITH HIGH LATERAL INFARCT AGE UNDETERMINED CONSIDER INFERIOR MYOCARDIAL DAMAGE ST & T ABNORMALITY, CONSIDER ANTERIOR ISCHEMIA OR LEFT VENTRICULAR STRAIN ABNORMAL ECG No previous ECG available for comparison
[2019-11-04 15:39] LABS: PROTHROMBIN TIME PATIENT 12.7 SEC (11.7-14.0)
[2019-11-04 15:40] LABS: ALBUMIN 2.5 g/dL (3.4-5.0); ALBUMIN/GLOBULIN RATIO 0.8 (1.0-1.7); TOTAL BILIRUBIN 0.3 mg/dL (0.2-1.0); TOTAL PROTEIN 5.8 g/dL (6.4-8.2)
[2019-11-04] MEDS ORDERED: DIPH,PERTUSS(ACELL),TET VAC/PF 0.5 ML SYRINGE. VAX IM ONE (16:00)
--- NOTE | 2019-11-04 16:11 | RAD ---
EXAM: CHEST 1 VIEW History: Fall COMPARISON: None available. TECHNIQUE: Single portable radiograph of the chest Findings/impression The cardiac silhouette is unremarkable. Hyperinflated lungs likely changes of COPD. The costophrenic sulci are clear and well demarcated. Mild prominent bilateral interstitial lung markings likely chronic interstitial changes. Mild linear right lung base airspace opacities likely atelectasis or infiltrate. Electronically signed by: Mauricio Barton MD (11/04/2019 4:08 PM) [id number]
--- NOTE | 2019-11-04 16:15 | RAD ---
Examination: Frontal view of the pelvis, 2views of the right femur HISTORY: History of fall COMPARISON: None available. Findings/ impression: Bilateral femoral heads are within the acetabula. Moderate degenerative changes bilateral hip joints. Left-sided femoral hardware identified. No obvious acute fracture the right femur. Chondrocalcinosis medial, lateral compartments. Electronically signed by: Mauricio Barton MD (11/04/2019 4:12 PM) [id number]
--- NOTE | 2019-11-04 16:29 | RAD ---
Exam: CT head and cervical spine without contrast INDICATION: Fall TECHNIQUE: Sequential axial images through the head and cervical spine were obtained without the administration of IV contrast. Comparisons: None FINDINGS: Head: No focal parenchymal lesion or hemorrhage is identified. There is no midline shift or sulcal effacement. Patchy hypodensity within the periventricular white matter. No acute vascular territory infarction is identified. Mobley-white distinction is preserved. The ventricular system is within normal limits without compression hydrocephalus. The basal cisterns are well maintained. The visualized portions of the paranasal sinuses and mastoid air cells are well-pneumatized. No acute fractures. Cervical spine: Straightening of the cervical spine. Vertebral body heights are well-maintained. Fracture to the cervical spine is not identified. Mildly displaced fracture through the medial left clavicle., Chronic in appearance. Multilevel spondylotic change in cervical spine with degenerative disc disease greatest at C4-C5, C5-C6 and C6-C7. Mild bilateral facet arthropathy throughout cervical spine. Visualized paraspinal soft tissues are unremarkable. IMPRESSION: 1. No acute intracranial abnormality. 2. Negative CT C-spine for acute traumatic injury. Exposure: One or more of the following in the visualized dose reduction techniques were utilized for this examination: 1. Automated exposure control 2. Adjustment of the MA and/or KV according to patient size Use of iterative of reconstructive technique Electronically signed by: Georgia Ellison MD (11/04/2019 4:26 PM) [id number]
[2019-11-04 17:15] VITALS: BP 174/70
[2019-11-05] MEDS ORDERED: CARV12.511 PO (22:18)
[2019-11-05] MEDS ORDERED: MIRT7.5T8 PO (22:18)
[2019-11-05] MEDS ORDERED: TRAZ-118 PO (22:18)
[2019-11-05] MEDS ORDERED: MELA3TAB43 PO (22:18)
[2019-11-05] MEDS ORDERED: LEVO25TA4 PO (22:18)
[2019-11-05] MEDS ORDERED: PANT40TA77 PO (22:18)
[2019-11-05] MEDS ORDERED: MEGE40TA3 PO (22:18)
[2019-11-05] MEDS ORDERED: SERT50TA PO (22:18)
[2019-11-05] MEDS ORDERED: ASPI-424 PO (22:18)
== END 2019-11-04 17:15 | disposition home or self-care (01) ==
LOC: ER 15:04
DX: M79.651 Pain in right thigh (principal); M25.551 Pain in right hip; R51 Headache; R07.89 Other chest pain; G89.11 Acute pain due to trauma; W18.39XA Other fall on same level, initial encounter; Y93.89 Activity, other specified; Y92.89 Other specified places as the place of occurrence of the external cause; Y99.8 Other external cause status
CPT/HCPCS: 36415; 70450; 71045; 72125; 72170; 73552; 80053; 84484; 85025; 85610; 85730; 90471; 90715; 93005; 99285-25

== ENCOUNTER 2019-11-05 15:14 | Inpatient (IN) | payer MEDICARE, OTHER ==
[~2019-11-05] VITALS: Ht 167.6 cm; Wt 42.0 kg
--- NOTE | 2019-11-05 16:18 | PHYS DOC ---
Past Medical History Past Medical History: Hip Fracture (left), Hypertension, Hypothyroid Smoking Status: Never Smoker Alcohol Use: None Adult General Chief Complaint Chief Complaint: PAIN CONTROL HPI HPI 74-year-old female significant history of hypertension, hypothyroidism, Alzheimer's dementia, prior left hip arthroplasty, who presents for evaluation of ongoing right hip pain s/p fall yesterday. The patient was seen in the ED yesterday following her fall, with unremarkable CT imaging of the head and cervical spine, as well as unremarkable plain films of the chest, pelvis, right hip. Since discharge, she has been having increasing pain, now unable to bear weight. Received Motrin and Tylenol prior to arrival with some efficacy. Review of Systems Review of Systems General: No fevers, chills. Eyes: No blurred vision, diplopia. ENT: No facial pain, epistaxis. CV: No chest pain, syncope. Resp: No shortness of breath, cough. GI: No abdominal pain, nausea, vomiting. : No perineal pain, hematuria. Neuro: No headache, dizziness. MSK: No back pain. Reports arthralgia. Skin: No acute rash, lesion. All other systems were reviewed and found to be within normal limits, except as documented in this note. Current Medications Current Medications Current Medications Medications (Trade) Dose Ordered Sig/Clotilde Start Time Stop Time Status Last Admin Dose Admin Morphine Sulfate (Morphine Sulfate) 2 mg 1X ONCE 11/05/19 17:00 11/05/19 17:01 DC 11/05/19 17:00 2 MG Ondansetron HCl (Zofran) 4 mg 1X ONCE 11/05/19 17:00 11/05/19 17:01 DC 11/05/19 16:59 4 MG Allergies Allergies Allergies Coded Allergies Type Severity Reaction Last Updated Verified No Known Drug Allergies 06/27/19 No Physical Exam Physical Exam Gen: NAD. Head: NC/AT Eyes: No scleral icterus. No conjunctival injection. PERRL. ENT: MMM. Posterior OP clear. No epistaxis or septal hematoma. Neck: Supple. NT. Chest: No anterior chest wall TTP. No crepitus. Symmetric chest rise. CV: RRR. Peripheral pulses intact. Resp: CTAB. Abd: Soft. NT. ND. Back: No midline TTP or stepoffs. MSK: No peripheral cyanosis. No edema. Nonfocal tenderness of the right distal hip region without gross deformity or overlying skin changes. Neuro: Awake and alert. Baseline mentation. No focal weakness or paresthesia. Skin: Warm. Dry. Psych: Appropriate mood & affect. Current Patient Data Vital Signs Vital Signs Date Time Temp Pulse Resp B/P (MAP) Pulse Ox O2 Delivery O2 Flow Rate FiO2 11/05/19 17:00 16 92 Room Air 11/05/19 16:08 97.8 59 143/75 (97) 97.8 EKG EKG [] Radiology/Procedures Radiology/Procedures [] Impressions: 1. Negative CT lumbar spine for acute traumatic injury. 2. No acute fracture identified in the pelvis. Course & Med Decision Making Course & Med Decision Making Pertinent Labs and Imaging studies reviewed. (See chart for details) In summary, 74F p/w ongoing left hip pain s/p fall yesterday, seen yesterday with neg XRs. Worsening pain, unable to ambulate. CTLS/pelvis added, no acute Fx. ?sprain. Will admit. Dragon Disclaimer Dragon Disclaimer This electronic medical record was generated, in whole or in part, using a voice recognition dictation system. Departure Departure Impression: Primary Impression: Right hip pain Disposition: ADMITTED INPATIENT Admitting Physician: XANDER (Roro) Condition: STABLE Referrals: FAHEEM RICH MD (PCP) ANGELO ORELLANA DO Nov 05, 2019 16:18
[2019-11-05] MEDS ORDERED: MORPHINE SULFATE 2 MG/ML VIAL. IV ONE (17:00)
[2019-11-05] MEDS ORDERED: ONDANSETRON PF 4 MG/2 ML VIAL. IVP ONE (17:00)
--- NOTE | 2019-11-05 17:53 | RAD ---
Exam: CT lumbar spine and pelvis without contrast INDICATION: Right hip pelvic pain TECHNIQUE: Sequential axial images through the lumbar spine and pelvis obtained without IV contrast. Sagittal and coronal reformatted images were reconstructed from the axial data and reviewed. Comparisons: None FINDINGS: Lumbar spine: Vertebral body heights and alignment are well-maintained. Fracture through the lumbar spine is not identified. Mild spondylotic change at L3-L4 and L4-L5 without significant neural foraminal or spinal canal stenosis. Visualized paraspinal soft tissues are unremarkable. Pelvis: Visualized pelvic structures are unremarkable. Left hip fixation hardware is noted. No acute fractures identified. Sacroiliac joints, pubic symphysis and hip joints are well-maintained. Visualized soft tissues are unremarkable. IMPRESSION: 1. Negative CT lumbar spine for acute traumatic injury. 2. No acute fracture identified in the pelvis. Exposure: One or more of the following in the visualized dose reduction techniques were utilized for this examination: 1. Automated exposure control 2. Adjustment of the MA and/or KV according to patient size 3. Use of iterative of reconstructive technique Electronically signed by: Georgia Ellison MD (11/05/2019 5:50 PM) [id number]
--- NOTE | 2019-11-05 18:12 | PDOC1 ---
History and Physical Date of Admission Date of Admission DATE: 11/05/19 TIME: 18:12 Identification/Chief Complaint Chief Complaint Fall Source Source: Caregiver, Chart review, Patient History of Present Illness History of Present Illness Ms Ramesh is a 74yo F w/ PMHx CAD, hypertension, hypothyroidism, Alzheimer's dementia, OAB, prior left hip arthroplasty, who presents for evaluation of ongoing right hip pain s/p fall 11/04/19. The patient was seen in the ED following her fall, with unremarkable CT imaging of the head and cervical spine, as well as unremarkable plain films of the chest, pelvis, right hip and taken home into the care of her grand-daughter. Since discharge, she has been having increasing pain, now unable to bear weight. Received Motrin and Tylenol prior to arrival with some efficacy. When asked how long she has had this right hip pain she tells me 3 months and asks if she can move back downstairs to her second story apartment and would like me to call her parents. When asked the year she states 1975. When I try to ambulate with her she does not bear weight on her right side. No reflux/heartburn, dysphagia, n/v, constipation, hematochezia, or melena. Decreased appetite w/ weight loss for 4 years since Alzheimer's diagnosis. Cancer (father - throat), Other (brother - diarrhea, several family members w/ Alzheimer's) Past Medical History Cardiovascular: CAD, HTN Pulmonary: COPD CENTRAL NERVOUS SYSTEM: Dementia GI: Diverticulosis Psych: Bipolar Musculoskeletal: Osteoarthritis Past Surgical History Past Surgical History: Hysterectomy Family History Family History: Heart Disease Social History Smoke: Quit ALCOHOL: none Drugs: None Current Problem List Problem List Problems Medical Problems: (1) Right hip pain Status: Acute Current Medications Current Medications Current Medications Morphine Sulfate (Morphine Sulfate) 2 mg 1X ONCE IV Last administered on 11/05/19at 17:00; Start 11/05/19 at 17:00; Stop 11/05/19 at 17:01; Status DC Ondansetron HCl (Zofran) 4 mg 1X ONCE IVP Last administered on 11/05/19at 16:59; Start 11/05/19 at 17:00; Stop 11/05/19 at 17:01; Status DC Ondansetron HCl (Zofran) 4 mg PRN Q8HRS PRN IV NAUSEA/VOMITING; Start 11/05/19 at 18:15; Stop 11/06/19 at 18:14; Status UNV Morphine Sulfate (Morphine Sulfate) 2 mg Q6H PRN IV PAIN; Start 11/05/19 at 18:15; Stop 11/06/19 at 18:14; Status UNV Active Scripts Active Hydrocodone-Apap 5-325 (Hydrocodone Bit/Acetaminophen) 1 Tab Tablet 1 Tab PO PRN Q6HRS PRN 30 Days Tylenol (Acetaminophen) 325 Mg Tablet 650 Mg PO Q4H 30 Days Coumadin (Warfarin Sodium) 2.5 Mg Tablet 1 Tab PO DAILY 30 Days Reported Aspir-Low (Aspirin) 81 Mg Tablet.dr 1 Tab PO HS B Complex (Vitamin B Complex) 1 Each Tablet 1 Tab PO DAILY 30 Days Vitamin C (Ascorbic Acid) 500 Mg Capsule.er 1,000 Mg PO DAILY Centrum Silver Women Tablet (Multivits-Min/Iron/FA/Lutein) 1 Each Tablet 1 Each PO DAILY [L-Thyroxine] 25MG 25 Mg DAILY Carvedilol (Carvedilol) 6.25 Mg Tablet 6.25 Mg PO BIDWMEALS Amlodipine Besylate 5 Mg Tablet 5 Mg PO DAILY Allergies Allergies: Coded Allergies: No Known Drug Allergies (Unverified , 06/27/19) ROS General: YES: Fatigue, Malaise; No: Chills, Night Sweats, Appetite, Other PSYCHOLOGICAL ROS: No: Anxiety, Behavioral Disorder, Concentration difficultie, Decreased libido, Depression, Disorientation, Hallucinations, Hostility, Irritablity, Memory difficulties, Mood Swings, Obsessive thoughts, Physical abu se, Sexual abuse, Sleep disturbances, Suicidal ideation, Other Eyes: No Blurry vision, No Decreased vision, No Double vision, No Dry eyes, No Excessive tearing, No Eye Pain, No Itchy Eyes, No Loss of vision, No Photophobia, No Scotomata, No Uses contacts, No Uses glasses, No Other HEENT: No: Heacaches, Visual Changes, Hearing change, Nasal congestion, Nasal discharge, Oral lesions, Sinus pain, Sore Throat, Epistaxis, Sneezing, Snoring, Tinnitus, Vertigo, Vocal changes, Other ALLERGY AND IMMUNOLOGY: No: Hives, Insect Bite Sensitivity, Itchy/Watery Eyes, Nasal Congestion, Post Nasal Drip, Seasonal Allergies, Other Hematological and Lymphatic: No: Bleeding Problems, Blood Clots, Blood Transfusions, Brusing, Night Sweats, Pallor, Swollen Lymph Nodes, Other ENDOCRINE: No: Breast Changes, Galactorrhea, Hair Pattern Changes, Hot Flashes, Malaise/lethargy, Mood Swings, Palpitations, Polydipsia/polyuria, Skin Changes, Temperature Intolerance, Unexpected Weight Changes, Other Breast: No New/Changing Breast Lumps, No Nipple changes, No Nipple discharge, No Other Respiratory: No: Cough, Hemoptysis, Orthopnea, Pleuritic Pain, Shortness of breath, SOB with excertion, Sputum Changes, Stridor, Tachypnea, Wheezing, Other Cardiovascular: No Chest Pain, No Palpitations, No Orthopnea, No Paroxysmal Noc. Dyspnea, No Edema, No Lt Headedness, No Other Gastrointestinal: No Nausea, No Vomiting, No Abdominal Pain, No Diarrhea, No Constipation, No Melena, No Hematochezia, No Other Genitourinary: No Dysuria, No Frequency, No Incontinence, No Hematuria, No Retention, No Discharge, No Urgency, No Pain, No Flank Pain, No Other, No , No , No , No , No , No , No Musculoskeletal: No Gait Disturbance, No Joint Pain, No Joint Stiffness, No Joint Swelling, No Muscle Pain, No Muscular Weakness, No Pain In:, No Swelling In:, No Other Neurological: Yes Confusion, Yes Gait Disturbance; No Behavorial Changes, No Bowel/Bladder ControlChng, No Dizziness, No Headaches, No Impaired Coord/balance, No Memory Loss, No Numbness/Tingling, No Seizures, No Speech Problems, No Tremors, No Visual Changes, No Weakness, No Other Skin: No Dry Skin, No Eczema, No Hair Changes, No Lumps, No Mole Changes, No Mottling, No Nail Changes, No Pruritus, No Rash, No Skin Lesion Changes, No Other, No Acne Physical Exam General: Alert, Oriented X3, Cooperative, No acute distress HEENT: Atraumatic, PERRLA, EOMI, Mucous membr. moist/pink Lungs: Clear to auscultation, Normal air movement Heart: S1S2, RRR, no thrills, no rubs, no gallops, no murmurs Abdomen: Normal bowel sounds, Soft, No tenderness, No hepatosplenomegaly, No masses Rectal Exam: not examined Extremities: No clubbing, No cyanosis, No edema, Normal pulses, No tend erness/swelling Skin: No rashes, No breakdown, No significant lesion Neuro: Normal speech, Strength at 5/5 X4 ext, Normal tone, Sensation intact, Cranial nerves 3-12 NL, Reflexes 2+ Psych/Mental Status: Other Vitals Vitals Vital Signs Date Time Temp Pulse Resp B/P (MAP) Pulse Ox O2 Delivery O2 Flow Rate FiO2 11/05/19 17:00 16 92 Room Air 11/05/19 16:08 97.8 59 143/75 (97) 97.8 VTE Prophylaxis Ordered VTE Prophylaxis Devices: Yes VTE Pharmacological Prophylaxi: Yes Assessment/Plan Assessment/Plan A/P: Falls - no fracture noted. CT negative as well. MRI would be more sensitive, but I would await PMR and PT evaluation prior to ordering MRI Weakness - PT and OT to evaluate for skilled consideration COPD - prn nebs Severe protein calorie malnutrition - related to alzheimers and decreased appetite secondary to this. Service Planner to see Alzheimer's - seems fairly advanced, but no behavioral disturbances noted. H/o CAD on ASA and BB Hypertension - cont meds Hypothyroidism - cont meds FEN - Cardiac PPX - lovenox FULL CODE Dispo - inpatient for 2 midnights. ILA SMITH MD Nov 05, 2019 18:12
[2019-11-05] MEDS ORDERED: MORPHINE SULFATE 4 MG/ML VIAL. IV PRN (18:15)
[2019-11-05] MEDS ORDERED: ONDANSETRON PF 4 MG/2 ML VIAL. IV PRN ×2 (18:15)
[2019-11-05] MEDS ORDERED: MORPHINE SULFATE 2 MG/ML VIAL. IV PRN (18:15)
--- NOTE | 2019-11-05 18:40 | NUR ---
1840 Patient placed in room 432, VS taken, instructed in use of call light and asked about pain. Report then given to sand digger RNGerard.
[2019-11-05 19:00] VITALS: BP 141/88
[2019-11-05 20:01] VITALS: BP 135/69
[2019-11-05] MEDS ORDERED: TRAZ-118 PO (22:18)
[2019-11-05] MEDS ORDERED: ASPI-424 PO (22:18)
[2019-11-05] MEDS ORDERED: MELA3TAB43 PO (22:18)
[2019-11-05] MEDS ORDERED: MEGE40TA3 PO (22:18)
[2019-11-05] MEDS ORDERED: LEVO25TA4 PO (22:18)
[2019-11-05] MEDS ORDERED: CARV12.511 PO (22:18)
[2019-11-05] MEDS ORDERED: MIRT7.5T8 PO (22:18)
[2019-11-05] MEDS ORDERED: PANT40TA77 PO (22:18)
[2019-11-05] MEDS ORDERED: SERT50TA PO (22:18)
[2019-11-05] MEDS: ACETAMINOPHEN 325 MG TABLET. PO SCH (23:43)
[2019-11-05] MEDS: traZODone 50 MG TABLET. PO SCH (23:43)
[2019-11-05] MEDS: MIRTAZAPINE 7.5 MG TABLET. PO SCH (23:43)
[2019-11-05 23:51] VITALS: BP 178/77
[2019-11-06] MEDS: ACETAMINOPHEN 325 MG TABLET. PO SCH ×4 (03:30→15:30)
[2019-11-06] MEDS: LEVOTHYROXINE 25 MCG TABLET. PO SCH (06:14)
[2019-11-06 07:00] VITALS: BP 180/88
[2019-11-06] MEDS: PANTOPRAZOLE 40 MG TABLET.DR. PO SCH (08:33)
[2019-11-06] MEDS: VITAMIN B COMPLEX TABLET. PO SCH (08:33)
[2019-11-06] MEDS: CARVEDILOL 12.5 MG TABLET. PO SCH ×2 (08:34→18:13)
[2019-11-06] MEDS ORDERED: ENOXAPARIN 40 MG/0.4 ML SYRINGE. SQ SCH (09:00)
[2019-11-06] MEDS ORDERED: amLODIPine BESYLATE 5 MG TABLET PO SCH (09:00)
[2019-11-06 11:00] VITALS: BP 96/60
--- NOTE | 2019-11-06 11:03 | CONS ---
DATE OF CONSULTATION: 11/06/2019 ATTENDING PHYSICIAN: Benjamin Read MD REASON FOR CONSULTATION: The patient was seen at the request of Dr. Read for rehab evaluation. HISTORY OF PRESENT ILLNESS: This is a 74-year-old female, right-handed, with known coronary artery disease, hypertension, hyperthyroidism, Alzheimer's dementia, status post left hip arthroplasty in the past. She apparently had a fall, was seen in the Emergency Room on 11/04/2019. X-rays failed to reveal any acute abnormalities including CT scan of the head and cervical spine and plain films of chest, pelvis and right hip and was taken home into the care of her granddaughter. Since her discharge, she is having increasing pain, unable to weightbear on her right foot, received Motrin and Tylenol with some efficacy. The patient also with known diverticulosis, bipolar disorder, osteoarthritis, status post hysterectomy. FAMILY HISTORY: Carcinoma with her father having throat cancer, brother had diarrhea, several family members had Alzheimer's. Also, family history of heart disease. ALLERGIES: The patient is not known allergic to any medication. SOCIAL HISTORY: She quit smoking. PHYSICAL EXAMINATION: The patient on physical examination today revealed an elderly female. She is awake, follows commands appropriately, moves all 4 extremities. She is protecting her right hip to some extent. The patient had overall 4+/5 grade muscle strength and deep tendon reflexes are decreased overall. She had equal perception of touch and pinprick sensation bilaterally. The patient had intact skin other than over her right forehead, where she had a small skin abrasion. The patient got up and walked using a roller walker with some limping on her right foot to some extent. No dragging of her feet noted. ASSESSMENT: Elderly female with recent fall and sprain, right hip also with radiological evidence of degenerative disk disease of lumbar vertebrae. No clinical evidence of ongoing lumbar radiculopathy. The patient is status post left total hip arthroplasty and also with known Alzheimer's dementia, coronary artery disease, hypertension, chronic obstructive pulmonary disease, diverticulosis, bipolar disorder. RECOMMENDATIONS: To use physical modality to get her up as tolerated, hopefully home with home health followup when medically stable in the next day or so. Dr. Read, I appreciate asking me to participate in the care of this interesting patient. I will be glad to see her for followup with you on as needed basis. WALTER RICHARD MD DR: EL/ruel JOB#: [id number] / [id number]
--- NOTE | 2019-11-06 11:05 | PDOC ---
PROGRESS NOTES History of Present Illness History of Present Illness VTE Prophylaxis Ordered VTE Prophylaxis Devices: Yes VTE Pharmacological Prophylaxi: Yes Assessment/Plan impression Falls - no fracture noted. CT negative as well. MRI would be more sensitive, but I would await PMR and PT evaluation prior to ordering MRI on ct No acute fractures identified. Sacroiliac joints, pubic symphysis and hip joints are well-maintained. Weakness - PT and OT to evaluate for skilled consideration COPD - prn nebs Severe protein calorie malnutrition - related to alzheimers and decreased appetite secondary to this. Clinical Data Management Director to see Alzheimer's - seems fairly advanced, but no behavioral disturbances noted. H/o CAD on ASA and BB Hypertension - REMAINS LABILE Hypothyroidism - cont meds FEN - Cardiac PPX - lovenox FULL CODE Dispo - inpatient for 2 midnights. home with home health followup when medically stable BP CONTROL, FALL PRECAUTIONS INC NORVASC TO 5 MG PO BID 11/05 Discharge Recommendations * Usp Unit Vitals Vitals Vital Signs Date Time Temp Pulse Resp B/P (MAP) Pulse Ox O2 Delivery O2 Flow Rate FiO2 11/06/19 08:34 56 180/88 11/06/19 08:00 Room Air 11/06/19 07:00 98.1 17 95 98.1 Physical Exam General: Alert, Oriented X3, Cooperative, No acute distress Lungs: Clear Abdomen: Normal bowel sounds, Soft, No tenderness, No hepatosplenomegaly, No masses Extremities: No clubbing, No cyanosis, No edema, Normal pulses, No tenderness/swelling Skin: No rashes, No breakdown, No significant lesion Labs LABS Exam: CT lumbar spine and pelvis without contrast INDICATION: Right hip pelvic pain TECHNIQUE: Sequential axial images through the lumbar spine and pelvis obtained without IV contrast. Sagittal and coronal reformatted images were reconstructed from the axial data and reviewed. Comparisons: None FINDINGS: Lumbar spine: Vertebral body heights and alignment are well-maintained. Fracture through the lumbar spine is not identified. Mild spondylotic change at L3-L4 and L4-L5 without significant neural foraminal or spinal canal stenosis. Visualized paraspinal soft tissues are unremarkable. Pelvis: Visualized pelvic structures are unremarkable. Left hip fixation hardware is noted. No acute fractures identified. Sacroiliac joints, pubic symphysis and hip joints are well-maintained. Visualized soft tissues are unremarkable. IMPRESSION: 1. Negative CT lumbar spine for acute traumatic injury. 2. No acute fracture identified in the pelvis. Exposure: One or more of the following in the visualized dose reduction techniques were utilized for this examination: 1. Automated exposure control 2. Adjustment of the MA and/or KV according to patient size 3. Use of iterative of reconstructive technique Electronically signed by: Georgia Medrano MD (11/05/2019 5:50 PM) [id number] DICTATED and SIGNED BY: GEORGIA MEDRANO MD Assessment and Plan Assessmemt and Plan Problems Medical Problems: (1) Right hip pain Status: Acute * Decreased Mentation Patient condition at conclusion of therapy * Pt in chair * Personal alarm on * Call light in reach * Phone in reach * PtIn no apparent distress * Pt denies further needs Communicated Patient Care With (Name, Title) * AL Trevizo; CHRIS Gore Goal 1 - Bed Mobility Assistance Required * Independent Goal 2 - Transfers Assistance Required * Independent Goal 2 - Transfer Type * Sit to Stand Goal 3 - Ambulation Assistance Required * Independent Goal 3 - Ambulation Distance * 250' Goal 3 - Ambulation Device * Roller Walker Goal 4 - Stairs Assistance Required * Independent Goal 4 - Number of Stairs * 5-9 Goal 4 - Device on Stairs * Rail on Right * Rail on Left Treatment Plan * Therapeutic Exercise * Bed Mobility Training * Transfer training * Gait Training * Body Mechanics Training * Dynamic Balance Training Frequency of Treatment Expected * 6 visits/week Duration of Treatment Expected * 1 week Discharge Recommendations * Usp Unit Comment Review of Relevant I have reviewed the following items vamshi (where applicable) has been applied. Medications Current Medications Morphine Sulfate (Morphine Sulfate) 2 mg 1X ONCE IV Last administered on 11/05/19at 17:00; Start 11/05/19 at 17:00; Stop 11/05/19 at 17:01; Status DC Ondansetron HCl (Zofran) 4 mg 1X ONCE IVP Last administered on 11/05/19at 16:59; Start 11/05/19 at 17:00; Stop 11/05/19 at 17:01; Status DC Ondansetron HCl (Zofran) 4 mg PRN Q8HRS PRN IV NAUSEA/VOMITING; Start 11/05/19 at 18:15; Stop 11/05/19 at 18:13; Status DC Morphine Sulfate (Morphine Sulfate) 2 mg Q6H PRN IV PAIN; Start 11/05/19 at 18:15; Stop 11/05/19 at 18:13; Status DC Morphine Sulfate (Morphine Sulfate) 2 mg PRN Q4HRS PRN IV PAIN; Start 11/05/19 at 18:15 Ondansetron HCl (Zofran) 4 mg PRN Q4HRS PRN IV NAUSEA/VOMITING; Start 11/05/19 at 18:15 Acetaminophen (Tylenol) 650 mg Q4H PO Last administered on 11/06/19at 08:33; Start 11/05/19 at 23:30 Amlodipine Besylate (Norvasc) 5 mg DAILY PO Last administered on 11/06/19at 08:33; Start 11/06/19 at 09:00 Aspirin (Ecotrin) 81 mg QPM PO ; Start 11/06/19 at 18:00 Carvedilol (Coreg) 12.5 mg BIDWMEALS PO Last administered on 11/06/19at 08:34; Start 11/06/19 at 08:00 Levothyroxine Sodium (Synthroid) 25 mcg DAILY06 PO Last administered on 11/06/19at 06:14; Start 11/06/19 at 06:00 Mirtazapine (Remeron) 7.5 mg QHS PO Last administered on 11/05/19at 23:43; Start 11/05/19 at 23:30 Pantoprazole Sodium (Protonix) 40 mg DAILYAC PO Last administered on 11/06/19at 08:33; Start 11/06/19 at 07:30 Sertraline HCl (Zoloft) 50 mg QPM PO ; Start 11/06/19 at 18:00 Trazodone HCl (Desyrel) 50 mg QHS PO Last administered on 11/05/19at 23:43; Start 11/05/19 at 23:30 Vitamin B Complex (Nikko B) 1 tab DAILY PO Last administered on 11/06/19at 08:33; Start 11/06/19 at 09:00 Enoxaparin Sodium (Lovenox 40mg Syringe) 30 mg Q24H SQ Last administered on 11/06/19at 08:33; Start 11/06/19 at 09:00; Stop 11/06/19 at 10:34; Status DC Enoxaparin Sodium (Lovenox 30mg Syringe) 30 mg Q24H SQ ; Start 11/07/19 at 09:00 Active Scripts Active Hydrocodone-Apap 5-325 (Hydrocodone Bit/Acetaminophen) 1 Tab Tablet 1 Tab PO PRN Q6HRS PRN 30 Days Tylenol (Acetaminophen) 325 Mg Tablet 650 Mg PO Q4H 30 Days Coumadin (Warfarin Sodium) 2.5 Mg Tablet 1 Tab PO DAILY 30 Days Reported Melatonin 3 Mg Tab.rapdis 1 Tab PO QHS 30 Days Trazodone Hcl 50 Mg Tablet 1 Tab PO QHS Adult Low Dose Aspirin Ec (Aspirin) 81 Mg Tablet. 81 Mg PO QPM Mirtazapine 7.5 Mg Tablet 1 Tab PO QHS 30 Days Zoloft (Sertraline Hcl) 50 Mg Tablet 50 Mg PO QPM Levothyroxine Sodium 25 Mcg Tablet 1 Tab PO DAILY Pantoprazole Sodium (Pantoprazole Sodium) 40 Mg Tablet. 40 Mg PO DAILYAC Megestrol Acetate 40 Mg Tablet 40 Mg PO BID Carvedilol (Carvedilol) 12.5 Mg Tablet 12.5 Mg PO BIDWMEALS Aspir-Low (Aspirin) 81 Mg Tablet. 1 Tab PO HS B Complex (Vitamin B Complex) 1 Each Tablet 1 Tab PO DAILY 30 Days Vitamin C (Ascorbic Acid) 500 Mg Capsule.er 1,000 Mg PO DAILY Centrum Silver Women Tablet (Multivits-Min/Iron/FA/Lutein) 1 Each Tablet 1 Each PO DAILY [L-Thyroxine] 25MG 25 Mg DAILY Carvedilol (Carvedilol) 6.25 Mg Tablet 6.25 Mg PO BIDWMEALS Amlodipine Besylate 5 Mg Tablet 5 Mg PO DAILY Vitals/I & O Vital Sign - Last 24 Hours 11/05/19 11/05/19 11/05/19 11/05/19 16:08 16:30 17:00 17:00 Temp 97.8 97.8 Pulse 59 56 58 Resp 16 19 16 B/P (MAP) 143/75 (97) Pulse Ox 94 94 92 92 O2 Delivery Room Air Room Air 11/05/19 11/05/19 11/05/19 11/05/19 17:30 18:00 18:30 19:00 Temp 98.0 98.0 Pulse 58 57 59 60 Resp 17 18 18 B/P (MAP) 141/88 (105) Pulse Ox 95 96 96 93 O2 Delivery Room Air 11/05/19 11/05/19 11/05/19 11/06/19 19:46 20:01 23:51 03:15 Temp 98.2 98.5 98.2 98.5 Pulse 62 63 Resp 20 22 20 B/P (MAP) 135/69 (91) 178/77 (110) Pulse Ox 92 92 O2 Delivery Room Air Room Air Room Air 11/06/19 11/06/19 11/06/19 11/06/19 07:00 08:00 08:33 08:34 Temp 98.1 98.1 Pulse 56 56 56 Resp 17 B/P (MAP) 180/88 (118) 180/88 180/88 Pulse Ox 95 O2 Delivery Room Air Room Air Intake and Output 11/05/19 11/05/19 11/06/19 15:00 23:00 07:00 Intake Total 100 ml 150 ml Balance 100 ml 150 ml EDITA HOGAN MD Nov 06, 2019 11:05
--- NOTE | 2019-11-06 12:18 | NUR ---
SARAH following. Discussed with RN, pt from home with . Pt has been to [place] on and off for a couple of months, was at home with home health which was discontinued about a week ago. SARAH spoke with pt's , Akhil ([phone]), Akhil had been speaking with Marixa Preciado at [facility] about intermission coordinator care and had planned to have pt in there however felt he could not drop pt at the door and leave, as felt it would be confusing for pt. Akhil reported he feels pt would deal better if she is transferred to [place] from the hospital like last time. Akhil reported he recently had medicaid approved which he has discussed with Marixa at [place]. PT/OT recommending SNU, Akhil agreeable to SNU to [facility], if pt accepted for senior care first. SARAH faxed referral to [place], awaiting acceptance decision. Medicare not currently requiring 3 midnight rule due to Covid-19. SARAH left voicemail for Marixa at [place]. RN notified.
[2019-11-06 15:00] VITALS: BP 127/62
[2019-11-06 17:38] LABS: BASO % 1 % (0-3); EOS # 0.4 x10^3/uL (0.0-0.7); EOS % 5 % (0-3); LYMPH # 1.7 x10^3/uL (1.0-4.8); LYMPH % 21 % (24-48); MEAN CORPUSCULAR HEMOGLOBIN 30 pg (25-35); MEAN CORPUSCULAR HGB CONC 32 g/dL (31-37); MEAN CORPUSCULAR VOLUME 94 fL (79-100); MONO # 0.5 x10^3/uL (0.0-1.1); MONO % 7 % (0-9); NEUT # 5.5 x10^3/uL (1.8-7.7); NEUT % 67 % (31-73); PLATELET COUNT 261 x10^3/uL (140-400); RED BLOOD COUNT 3.95 x10^6/uL (3.50-5.40); RED CELL DISTRIBUTION WIDTH 15.4 % (11.5-14.5); WHITE BLOOD COUNT 8.1 x10^3/uL (4.0-11.0)
[2019-11-06 17:47] LABS: ALBUMIN 2.7 g/dL (3.4-5.0); ALBUMIN/GLOBULIN RATIO 0.7 (1.0-1.7); CALCIUM 8.6 mg/dL (8.5-10.1); CREATININE 1.8 mg/dL (0.6-1.0); GFR 27.5; POTASSIUM 3.7 mmol/L (3.5-5.1); TOTAL BILIRUBIN 0.3 mg/dL (0.2-1.0); TOTAL PROTEIN 6.4 g/dL (6.4-8.2)
[2019-11-06] MEDS ORDERED: SERTRALINE 50 MG TABLET. PO SCH (18:00)
[2019-11-06] MEDS ORDERED: ASPIRIN ENTERIC COATED 81 MG TABLET.DR. PO SCH (18:00)
[2019-11-06] MEDS: amLODIPine BESYLATE 5 MG TABLET PO SCH (18:14)
[2019-11-06] MEDS ORDERED: ACETAMINOPHEN 325 MG TABLET. PO PRN (18:15)
[2019-11-06 19:00] VITALS: BP 135/83
[2019-11-06] MEDS: MIRTAZAPINE 7.5 MG TABLET. PO SCH (21:25)
[2019-11-06] MEDS: traZODone 50 MG TABLET. PO SCH (21:25)
[2019-11-06 23:00] VITALS: BP 154/84
[2019-11-07 03:00] VITALS: BP 110/62
[2019-11-07] MEDS: PANTOPRAZOLE 40 MG TABLET.DR. PO SCH (06:09)
[2019-11-07] MEDS: LEVOTHYROXINE 25 MCG TABLET. PO SCH (06:09)
[2019-11-07 07:00] VITALS: BP 126/77
[2019-11-07] MEDS: VITAMIN B COMPLEX TABLET. PO SCH (08:38)
[2019-11-07] MEDS: CARVEDILOL 12.5 MG TABLET. PO SCH (08:38)
[2019-11-07] MEDS: amLODIPine BESYLATE 5 MG TABLET PO SCH (08:39)
[2019-11-07] MEDS ORDERED: ENOXAPARIN 30 MG/0.3 ML SYRINGE. SQ SCH (09:00)
--- NOTE | 2019-11-07 09:37 | NUR ---
SW following. Discussed with RN, pt accepted at [facility] for SNU. SW awaiting discharge paperwork and any scripts. RN notified. Addendum: 11/07/19 at 1146 by CLARA SMITH Discussed with [facility], pt's discharge orders need to state "transferred with no 3 day hospital stay as a result of the effect of Covid-19 disaster/emergency." SARAH notified Dr. Starr of note needed as Medicare is not requiring 3 midnights during the Covid-19 crisis. RN notified. SARAH will continue to follow. Addendum: 11/07/19 at 1259 by CLARA SMITH Pt discharging to [facility] today at 1330. Family and RN notified.
--- NOTE | 2019-11-07 10:21 | PDOC ---
PROGRESS NOTES Subjective Subjective Continued right hip pain. Objective Objective Vital Signs Date Time Temp Pulse Resp B/P (MAP) Pulse Ox O2 Delivery O2 Flow Rate FiO2 11/07/19 08:39 64 126/77 11/07/19 07:25 Room Air 11/07/19 07:00 98.3 16 90 98.3 Intake and Output 11/07/19 06:59 Intake Total 400 ml Balance 400 ml Intake Oral 400 ml # Voids 2 Physical Exam Physical Exam She is awake and she got up and walked with roller walker and still protecting her right hip. No leg length discrepancy of deformity of right hip noted. Assessment Assessment Problems Medical Problems: (1) Right hip pain Status: Acute Plan Plan of Care To obtain follow up right hip x-ray and home with home health when medically stable. Comment Review of Relevant I have reviewed the following items vamshi (where applicable) has been applied. Labs Laboratory Tests Test 11/06/19 17:15 White Blood Count 8.1 x10^3/uL (4.0-11.0) Red Blood Count 3.95 x10^6/uL (3.50-5.40) Hemoglobin 12.0 g/dL (12.0-15.5) Hematocrit 37.0 % (36.0-47.0) Mean Corpuscular Volume 94 fL (79-100) Mean Corpuscular Hemoglobin 30 pg (25-35) Mean Corpuscular Hemoglobin Concent 32 g/dL (31-37) Red Cell Distribution Width 15.4 % (11.5-14.5) Platelet Count 261 x10^3/uL (140-400) Neutrophils (%) (Auto) 67 % (31-73) Lymphocytes (%) (Auto) 21 % (24-48) Monocytes (%) (Auto) 7 % (0-9) Eosinophils (%) (Auto) 5 % (0-3) Basophils (%) (Auto) 1 % (0-3) Neutrophils # (Auto) 5.5 x10^3/uL (1.8-7.7) Lymphocytes # (Auto) 1.7 x10^3/uL (1.0-4.8) Monocytes # (Auto) 0.5 x10^3/uL (0.0-1.1) Eosinophils # (Auto) 0.4 x10^3/uL (0.0-0.7) Basophils # (Auto) 0.0 x10^3/uL (0.0-0.2) Sodium Level 140 mmol/L (136-145) Potassium Level 3.7 mmol/L (3.5-5.1) Chloride Level 105 mmol/L (98-107) Carbon Dioxide Level 23 mmol/L (21-32) Anion Gap 12 (6-14) Blood Urea Nitrogen 24 mg/dL (7-20) Creatinine 1.8 mg/dL (0.6-1.0) Estimated GFR (Cockcroft-Gault) 27.5 BUN/Creatinine Ratio 13 (6-20) Glucose Level 139 mg/dL (70-99) Calcium Level 8.6 mg/dL (8.5-10.1) Total Bilirubin 0.3 mg/dL (0.2-1.0) Aspartate Amino Transf (AST/SGOT) 14 U/L (15-37) Alanine Aminotransferase (ALT/SGPT) 13 U/L (14-59) Alkaline Phosphatase 88 U/L (46-116) Total Protein 6.4 g/dL (6.4-8.2) Albumin 2.7 g/dL (3.4-5.0) Albumin/Globulin Ratio 0.7 (1.0-1.7) Laboratory Tests Test 11/06/19 17:15 White Blood Count 8.1 x10^3/uL (4.0-11.0) Red Blood Count 3.95 x10^6/uL (3.50-5.40) Hemoglobin 12.0 g/dL (12.0-15.5) Hematocrit 37.0 % (36.0-47.0) Mean Corpuscular Volume 94 fL (79-100) Mean Corpuscular Hemoglobin 30 pg (25-35) Mean Corpuscular Hemoglobin Concent 32 g/dL (31-37) Red Cell Distribution Width 15.4 % (11.5-14.5) Platelet Count 261 x10^3/uL (140-400) Neutrophils (%) (Auto) 67 % (31-73) Lymphocytes (%) (Auto) 21 % (24-48) Monocytes (%) (Auto) 7 % (0-9) Eosinophils (%) (Auto) 5 % (0-3) Basophils (%) (Auto) 1 % (0-3) Neutrophils # (Auto) 5.5 x10^3/uL (1.8-7.7) Lymphocytes # (Auto) 1.7 x10^3/uL (1.0-4.8) Monocytes # (Auto) 0.5 x10^3/uL (0.0-1.1) Eosinophils # (Auto) 0.4 x10^3/uL (0.0-0.7) Basophils # (Auto) 0.0 x10^3/uL (0.0-0.2) Sodium Level 140 mmol/L (136-145) Potassium Level 3.7 mmol/L (3.5-5.1) Chloride Level 105 mmol/L (98-107) Carbon Dioxide Level 23 mmol/L (21-32) Anion Gap 12 (6-14) Blood Urea Nitrogen 24 mg/dL (7-20) Creatinine 1.8 mg/dL (0.6-1.0) Estimated GFR (Cockcroft-Gault) 27.5 BUN/Creatinine Ratio 13 (6-20) Glucose Level 139 mg/dL (70-99) Calcium Level 8.6 mg/dL (8.5-10.1) Total Bilirubin 0.3 mg/dL (0.2-1.0) Aspartate Amino Transf (AST/SGOT) 14 U/L (15-37) Alanine Aminotransferase (ALT/SGPT) 13 U/L (14-59) Alkaline Phosphatase 88 U/L (46-116) Total Protein 6.4 g/dL (6.4-8.2) Albumin 2.7 g/dL (3.4-5.0) Albumin/Globulin Ratio 0.7 (1.0-1.7) Medications Current Medications Morphine Sulfate (Morphine Sulfate) 2 mg 1X ONCE IV Last administered on 11/05/19at 17:00; Start 11/05/19 at 17:00; Stop 11/05/19 at 17:01; Status DC Ondansetron HCl (Zofran) 4 mg 1X ONCE IVP Last administered on 11/05/19at 16:59; Start 11/05/19 at 17:00; Stop 11/05/19 at 17:01; Status DC Ondansetron HCl (Zofran) 4 mg PRN Q8HRS PRN IV NAUSEA/VOMITING; Start 11/05/19 at 18:15; Stop 11/05/19 at 18:13; Status DC Morphine Sulfate (Morphine Sulfate) 2 mg Q6H PRN IV PAIN; Start 11/05/19 at 18:15; Stop 11/05/19 at 18:13; Status DC Morphine Sulfate (Morphine Sulfate) 2 mg PRN Q4HRS PRN IV PAIN; Start 11/05/19 at 18:15 Ondansetron HCl (Zofran) 4 mg PRN Q4HRS PRN IV NAUSEA/VOMITING; Start 11/05/19 at 18:15 Acetaminophen (Tylenol) 650 mg Q4H PO Last administered on 11/06/19at 12:19; Start 11/05/19 at 23:30; Stop 11/06/19 at 18:16; Status DC Amlodipine Besylate (Norvasc) 5 mg DAILY PO Last administered on 11/06/19at 08:33; Start 11/06/19 at 09:00; Stop 11/06/19 at 16:01; Status DC Aspirin (Ecotrin) 81 mg QPM PO Last administered on 11/06/19at 18:10; Start 11/06/19 at 18:00 Carvedilol (Coreg) 12.5 mg BIDWMEALS PO Last administered on 11/07/19at 08:38; Start 11/06/19 at 08:00 Levothyroxine Sodium (Synthroid) 25 mcg DAILY06 PO Last administered on 11/07/19 06:09; Start 11/06/19 at 06:00 Mirtazapine (Remeron) 7.5 mg QHS PO Last administered on 11/06/19at 21:25; Start 11/05/19 at 23:30 Pantoprazole Sodium (Protonix) 40 mg DAILYAC PO Last administered on 11/07/19 06:09; Start 11/06/19 at 07:30 Sertraline HCl (Zoloft) 50 mg QPM PO Last administered on 11/06/19at 18:11; Start 11/06/19 at 18:00 Trazodone HCl (Desyrel) 50 mg QHS PO Last administered on 11/06/19 21:25; Start 11/05/19 at 23:30 Vitamin B Complex (Nikko B) 1 tab DAILY PO Last administered on 3/24/20at 08:38; Start 11/06/19 at 09:00 Enoxaparin Sodium (Lovenox 40mg Syringe) 30 mg Q24H SQ Last administered on 11/06/19at 08:33; Start 11/06/19 at 09:00; Stop 11/06/19 at 10:34; Status DC Enoxaparin Sodium (Lovenox 30mg Syringe) 30 mg Q24H SQ Last administered on 11/07/19at 08:39; Start 11/07/19 at 09:00 Amlodipine Besylate (Norvasc) 5 mg [id number] PO Last administered on 11/07/19at 08:39; Start 11/06/19 at 16:00 Acetaminophen (Tylenol) 650 mg PRN Q4HRS PRN PO pain Last administered on 11/06/19at 21:26; Start 11/06/19 at 18:15 Active Scripts Active Hydrocodone-Apap 5-325 (Hydrocodone Bit/Acetaminophen) 1 Tab Tablet 1 Tab PO PRN Q6HRS PRN 30 Days Tylenol (Acetaminophen) 325 Mg Tablet 650 Mg PO Q4H 30 Days Coumadin (Warfarin Sodium) 2.5 Mg Tablet 1 Tab PO DAILY 30 Days Reported Melatonin 3 Mg Tab.rapdis 1 Tab PO QHS 30 Days Trazodone Hcl 50 Mg Tablet 1 Tab PO QHS Adult Low Dose Aspirin Ec (Aspirin) 81 Mg Tablet. 81 Mg PO QPM Mirtazapine 7.5 Mg Tablet 1 Tab PO QHS 30 Days Zoloft (Sertraline Hcl) 50 Mg Tablet 50 Mg PO QPM Levothyroxine Sodium 25 Mcg Tablet 1 Tab PO DAILY Pantoprazole Sodium (Pantoprazole Sodium) 40 Mg Tablet. 40 Mg PO DAILYAC Megestrol Acetate 40 Mg Tablet 40 Mg PO BID Carvedilol (Carvedilol) 12.5 Mg Tablet 12.5 Mg PO BIDWMEALS Aspir-Low (Aspirin) 81 Mg Tablet. 1 Tab PO HS B Complex (Vitamin B Complex) 1 Each Tablet 1 Tab PO DAILY 30 Days Vitamin C (Ascorbic Acid) 500 Mg Capsule.er 1,000 Mg PO DAILY Centrum Silver Women Tablet (Multivits-Min/Iron/FA/Lutein) 1 Each Tablet 1 Each PO DAILY [L-Thyroxine] 25MG 25 Mg DAILY Carvedilol (Carvedilol) 6.25 Mg Tablet 6.25 Mg PO BIDWMEALS Amlodipine Besylate 5 Mg Tablet 5 Mg PO DAILY Vitals/I & O Vital Sign - Last 24 Hours 11/06/19 11/06/19 11/06/19 11/06/19 11:00 15:00 18:13 18:14 Temp 98.2 98.2 98.2 98.2 Pulse 60 63 70 68 Resp 17 18 B/P (MAP) 96/60 (72) 127/62 (83) 131/82 131/82 Pulse Ox 92 100 O2 Delivery Room Air Room Air 11/06/19 11/06/19 11/06/19 11/07/19 19:00 20:00 23:00 03:00 Temp 98.0 98.7 98.1 98.0 98.7 98.1 Pulse 73 60 61 Resp 18 18 18 B/P (MAP) 135/83 (100) 154/84 (107) 110/62 (78) Pulse Ox 98 92 92 O2 Delivery Room Air Room Air Room Air Room Air 11/07/19 11/07/19 11/07/19 11/07/19 07:00 07:25 08:38 08:39 Temp 98.3 98.3 Pulse 64 64 64 Resp 16 B/P (MAP) 126/77 (93) 126/77 126/77 Pulse Ox 90 O2 Delivery Room Air Room Air Intake and Output 11/06/19 11/06/19 11/07/19 14:59 22:59 06:59 Intake Total 400 ml Balance 400 ml WALTER RICHARD MD Nov 07, 2019 10:21
--- NOTE | 2019-11-07 10:21 | PDOC ---
PROGRESS NOTES History of Present Illness History of Present Illness VTE Prophylaxis Ordered VTE Prophylaxis Devices: Yes VTE Pharmacological Prophylaxi: Yes Assessment/Plan impression Falls - no fracture noted. CT negative as well. MRI would be more sensitive, but I would await PMR and PT evaluation prior to ordering MRI on ct No acute fractures identified. Sacroiliac joints, pubic symphysis and hip joints are well-maintained. Weakness - PT and OT to evaluate for skilled consideration COPD - prn nebs Severe protein calorie malnutrition - related to alzheimers and decreased appetite secondary to this. Personal Fitness Trainer to see Alzheimer's - seems fairly advanced, but no behavioral disturbances noted. H/o CAD on ASA and BB Hypertension - REMAINS LABILE Hypothyroidism - cont meds FEN - Cardiac PPX - lovenox FULL CODE Dispo - inpatient for 2 midnights. home with home health followup when medically stable BP CONTROL, FALL PRECAUTIONS INC NORVASC TO 5 MG PO BID 11/05 Discharge Recommendations * Alf Unit Vitals Vitals Vital Signs Date Time Temp Pulse Resp B/P (MAP) Pulse Ox O2 Delivery O2 Flow Rate FiO2 11/07/19 08:39 64 126/77 11/07/19 07:25 Room Air 11/07/19 07:00 98.3 16 90 98.3 Physical Exam General: Alert, Oriented X3, Cooperative, No acute distress Lungs: Clear Abdomen: Normal bowel sounds, Soft, No tenderness, No hepatosplenomegaly, No masses Extremities: No clubbing, No cyanosis, No edema, Normal pulses, No tenderness/swelling Skin: No rashes, No breakdown, No significant lesion Labs LABS Laboratory Tests Test 11/06/19 17:15 White Blood Count 8.1 x10^3/uL (4.0-11.0) Red Blood Count 3.95 x10^6/uL (3.50-5.40) Hemoglobin 12.0 g/dL (12.0-15.5) Hematocrit 37.0 % (36.0-47.0) Mean Corpuscular Volume 94 fL (79-100) Mean Corpuscular Hemoglobin 30 pg (25-35) Mean Corpuscular Hemoglobin Concent 32 g/dL (31-37) Red Cell Distribution Width 15.4 % (11.5-14.5) Platelet Count 261 x10^3/uL (140-400) Neutrophils (%) (Auto) 67 % (31-73) Lymphocytes (%) (Auto) 21 % (24-48) Monocytes (%) (Auto) 7 % (0-9) Eosinophils (%) (Auto) 5 % (0-3) Basophils (%) (Auto) 1 % (0-3) Neutrophils # (Auto) 5.5 x10^3/uL (1.8-7.7) Lymphocytes # (Auto) 1.7 x10^3/uL (1.0-4.8) Monocytes # (Auto) 0.5 x10^3/uL (0.0-1.1) Eosinophils # (Auto) 0.4 x10^3/uL (0.0-0.7) Basophils # (Auto) 0.0 x10^3/uL (0.0-0.2) Sodium Level 140 mmol/L (136-145) Potassium Level 3.7 mmol/L (3.5-5.1) Chloride Level 105 mmol/L (98-107) Carbon Dioxide Level 23 mmol/L (21-32) Anion Gap 12 (6-14) Blood Urea Nitrogen 24 mg/dL (7-20) Creatinine 1.8 mg/dL (0.6-1.0) Estimated GFR (Cockcroft-Gault) 27.5 BUN/Creatinine Ratio 13 (6-20) Glucose Level 139 mg/dL (70-99) Calcium Level 8.6 mg/dL (8.5-10.1) Total Bilirubin 0.3 mg/dL (0.2-1.0) Aspartate Amino Transf (AST/SGOT) 14 U/L (15-37) Alanine Aminotransferase (ALT/SGPT) 13 U/L (14-59) Alkaline Phosphatase 88 U/L (46-116) Total Protein 6.4 g/dL (6.4-8.2) Albumin 2.7 g/dL (3.4-5.0) Albumin/Globulin Ratio 0.7 (1.0-1.7) Assessment and Plan Assessmemt and Plan Problems Medical Problems: (1) Right hip pain Status: Acute Comment Review of Relevant I have reviewed the following items vamshi (where applicable) has been applied. Labs Laboratory Tests Test 11/06/19 17:15 White Blood Count 8.1 x10^3/uL (4.0-11.0) Red Blood Count 3.95 x10^6/uL (3.50-5.40) Hemoglobin 12.0 g/dL (12.0-15.5) Hematocrit 37.0 % (36.0-47.0) Mean Corpuscular Volume 94 fL (79-100) Mean Corpuscular Hemoglobin 30 pg (25-35) Mean Corpuscular Hemoglobin Concent 32 g/dL (31-37) Red Cell Distribution Width 15.4 % (11.5-14.5) Platelet Count 261 x10^3/uL (140-400) Neutrophils (%) (Auto) 67 % (31-73) Lymphocytes (%) (Auto) 21 % (24-48) Monocytes (%) (Auto) 7 % (0-9) Eosinophils (%) (Auto) 5 % (0-3) Basophils (%) (Auto) 1 % (0-3) Neutrophils # (Auto) 5.5 x10^3/uL (1.8-7.7) Lymphocytes # (Auto) 1.7 x10^3/uL (1.0-4.8) Monocytes # (Auto) 0.5 x10^3/uL (0.0-1.1) Eosinophils # (Auto) 0.4 x10^3/uL (0.0-0.7) Basophils # (Auto) 0.0 x10^3/uL (0.0-0.2) Sodium Level 140 mmol/L (136-145) Potassium Level 3.7 mmol/L (3.5-5.1) Chloride Level 105 mmol/L (98-107) Carbon Dioxide Level 23 mmol/L (21-32) Anion Gap 12 (6-14) Blood Urea Nitrogen 24 mg/dL (7-20) Creatinine 1.8 mg/dL (0.6-1.0) Estimated GFR (Cockcroft-Gault) 27.5 BUN/Creatinine Ratio 13 (6-20) Glucose Level 139 mg/dL (70-99) Calcium Level 8.6 mg/dL (8.5-10.1) Total Bilirubin 0.3 mg/dL (0.2-1.0) Aspartate Amino Transf (AST/SGOT) 14 U/L (15-37) Alanine Aminotransferase (ALT/SGPT) 13 U/L (14-59) Alkaline Phosphatase 88 U/L (46-116) Total Protein 6.4 g/dL (6.4-8.2) Albumin 2.7 g/dL (3.4-5.0) Albumin/Globulin Ratio 0.7 (1.0-1.7) Laboratory Tests Test 11/06/19 17:15 White Blood Count 8.1 x10^3/uL (4.0-11.0) Red Blood Count 3.95 x10^6/uL (3.50-5.40) Hemoglobin 12.0 g/dL (12.0-15.5) Hematocrit 37.0 % (36.0-47.0) Mean Corpuscular Volume 94 fL (79-100) Mean Corpuscular Hemoglobin 30 pg (25-35) Mean Corpuscular Hemoglobin Concent 32 g/dL (31-37) Red Cell Distribution Width 15.4 % (11.5-14.5) Platelet Count 261 x10^3/uL (140-400) Neutrophils (%) (Auto) 67 % (31-73) Lymphocytes (%) (Auto) 21 % (24-48) Monocytes (%) (Auto) 7 % (0-9) Eosinophils (%) (Auto) 5 % (0-3) Basophils (%) (Auto) 1 % (0-3) Neutrophils # (Auto) 5.5 x10^3/uL (1.8-7.7) Lymphocytes # (Auto) 1.7 x10^3/uL (1.0-4.8) Monocytes # (Auto) 0.5 x10^3/uL (0.0-1.1) Eosinophils # (Auto) 0.4 x10^3/uL (0.0-0.7) Basophils # (Auto) 0.0 x10^3/uL (0.0-0.2) Sodium Level 140 mmol/L (136-145) Potassium Level 3.7 mmol/L (3.5-5.1) Chloride Level 105 mmol/L (98-107) Carbon Dioxide Level 23 mmol/L (21-32) Anion Gap 12 (6-14) Blood Urea Nitrogen 24 mg/dL (7-20) Creatinine 1.8 mg/dL (0.6-1.0) Estimated GFR (Cockcroft-Gault) 27.5 BUN/Creatinine Ratio 13 (6-20) Glucose Level 139 mg/dL (70-99) Calcium Level 8.6 mg/dL (8.5-10.1) Total Bilirubin 0.3 mg/dL (0.2-1.0) Aspartate Amino Transf (AST/SGOT) 14 U/L (15-37) Alanine Aminotransferase (ALT/SGPT) 13 U/L (14-59) Alkaline Phosphatase 88 U/L (46-116) Total Protein 6.4 g/dL (6.4-8.2) Albumin 2.7 g/dL (3.4-5.0) Albumin/Globulin Ratio 0.7 (1.0-1.7) Medications Current Medications Morphine Sulfate (Morphine Sulfate) 2 mg 1X ONCE IV Last administered on 11/05/19at 17:00; Start 11/05/19 at 17:00; Stop 11/05/19 at 17:01; Status DC Ondansetron HCl (Zofran) 4 mg 1X ONCE IVP Last administered on 11/05/19at 16:59; Start 11/05/19 at 17:00; Stop 11/05/19 at 17:01; Status DC Ondansetron HCl (Zofran) 4 mg PRN Q8HRS PRN IV NAUSEA/VOMITING; Start 11/05/19 at 18:15; Stop 11/05/19 at 18:13; Status DC Morphine Sulfate (Morphine Sulfate) 2 mg Q6H PRN IV PAIN; Start 11/05/19 at 18:15; Stop 11/05/19 at 18:13; Status DC Morphine Sulfate (Morphine Sulfate) 2 mg PRN Q4HRS PRN IV PAIN; Start 11/05/19 at 18:15 Ondansetron HCl (Zofran) 4 mg PRN Q4HRS PRN IV NAUSEA/VOMITING; Start 11/05/19 at 18:15 Acetaminophen (Tylenol) 650 mg Q4H PO Last administered on 11/06/19at 12:19; Start 11/05/19 at 23:30; Stop 11/06/19 at 18:16; Status DC Amlodipine Besylate (Norvasc) 5 mg DAILY PO Last administered on 11/06/19at 08:33; Start 11/06/19 at 09:00; Stop 11/06/19 at 16:01; Status DC Aspirin (Ecotrin) 81 mg QPM PO Last administered on 11/06/19 18:10; Start 11/06/19 at 18:00 Carvedilol (Coreg) 12.5 mg BIDWMEALS PO Last administered on 11/07/19 08:38; Start 11/06/19 at 08:00 Levothyroxine Sodium (Synthroid) 25 mcg DAILY06 PO Last administered on 11/07/19 06:09; Start 11/06/19 at 06:00 Mirtazapine (Remeron) 7.5 mg QHS PO Last administered on 11/06/19 21:25; Start 11/05/19 at 23:30 Pantoprazole Sodium (Protonix) 40 mg DAILYAC PO Last administered on 11/07/19 06:09; Start 11/06/19 at 07:30 Sertraline HCl (Zoloft) 50 mg QPM PO Last administered on 11/06/19at 18:11; Start 11/06/19 at 18:00 Trazodone HCl (Desyrel) 50 mg QHS PO Last administered on 11/06/19 21:25; Start 11/05/19 at 23:30 Vitamin B Complex (Nikko B) 1 tab DAILY PO Last administered on 11/07/19 08:38; Start 11/06/19 at 09:00 Enoxaparin Sodium (Lovenox 40mg Syringe) 30 mg Q24H SQ Last administered on 11/06/19at 08:33; Start 11/06/19 at 09:00; Stop 11/06/19 at 10:34; Status DC Enoxaparin Sodium (Lovenox 30mg Syringe) 30 mg Q24H SQ Last administered on 11/07/19 08:39; Start 11/07/19 at 09:00 Amlodipine Besylate (Norvasc) 5 mg [id number] PO Last administered on 11/07/19 08:39; Start 11/06/19 at 16:00 Acetaminophen (Tylenol) 650 mg PRN Q4HRS PRN PO pain Last administered on 11/06/19 21:26; Start 11/06/19 at 18:15 Active Scripts Active Hydrocodone-Apap 5-325 (Hydrocodone Bit/Acetaminophen) 1 Tab Tablet 1 Tab PO PRN Q6HRS PRN 30 Days Tylenol (Acetaminophen) 325 Mg Tablet 650 Mg PO Q4H 30 Days Coumadin (Warfarin Sodium) 2.5 Mg Tablet 1 Tab PO DAILY 30 Days Reported Melatonin 3 Mg Tab.rapdis 1 Tab PO QHS 30 Days Trazodone Hcl 50 Mg Tablet 1 Tab PO QHS Adult Low Dose Aspirin Ec (Aspirin) 81 Mg Tablet.dr 81 Mg PO QPM Mirtazapine 7.5 Mg Tablet 1 Tab PO QHS 30 Days Zoloft (Sertraline Hcl) 50 Mg Tablet 50 Mg PO QPM Levothyroxine Sodium 25 Mcg Tablet 1 Tab PO DAILY Pantoprazole Sodium (Pantoprazole Sodium) 40 Mg Tablet. 40 Mg PO DAILYAC Megestrol Acetate 40 Mg Tablet 40 Mg PO BID Carvedilol (Carvedilol) 12.5 Mg Tablet 12.5 Mg PO BIDWMEALS Aspir-Low (Aspirin) 81 Mg Tablet. 1 Tab PO HS B Complex (Vitamin B Complex) 1 Each Tablet 1 Tab PO DAILY 30 Days Vitamin C (Ascorbic Acid) 500 Mg Capsule.er 1,000 Mg PO DAILY Centrum Silver Women Tablet (Multivits-Min/Iron/FA/Lutein) 1 Each Tablet 1 Each PO DAILY [L-Thyroxine] 25MG 25 Mg DAILY Carvedilol (Carvedilol) 6.25 Mg Tablet 6.25 Mg PO BIDWMEALS Amlodipine Besylate 5 Mg Tablet 5 Mg PO DAILY Vitals/I & O Vital Sign - Last 24 Hours 11/06/19 11/06/19 11/06/19 11/06/19 11:00 15:00 18:13 18:14 Temp 98.2 98.2 98.2 98.2 Pulse 60 63 70 68 Resp 17 18 B/P (MAP) 96/60 (72) 127/62 (83) 131/82 131/82 Pulse Ox 92 100 O2 Delivery Room Air Room Air 11/06/19 11/06/19 11/06/19 11/07/19 19:00 20:00 23:00 03:00 Temp 98.0 98.7 98.1 98.0 98.7 98.1 Pulse 73 60 61 Resp 18 18 18 B/P (MAP) 135/83 (100) 154/84 (107) 110/62 (78) Pulse Ox 98 92 92 O2 Delivery Room Air Room Air Room Air Room Air 11/07/19 11/07/19 11/07/19 11/07/19 07:00 07:25 08:38 08:39 Temp 98.3 98.3 Pulse 64 64 64 Resp 16 B/P (MAP) 126/77 (93) 126/77 126/77 Pulse Ox 90 O2 Delivery Room Air Room Air Intake and Output 11/06/19 11/06/19 11/07/19 15:00 23:00 07:00 Intake Total 400 ml Balance 400 ml EDITA HOGAN MD Nov 07, 2019 10:21
[2019-11-07 11:00] VITALS: BP 115/66
--- NOTE | 2019-11-07 11:33 | RAD ---
Examination: HIP RIGHT 2V WITH PELVIS History: Pain, recurrent fall Comparison/Correlation: 11/05/2019 CT pelvis Findings: Frontal view of the pelvis was obtained. Frontal view of the right hip and frog-leg lateral view of the right hip were obtained. Left femoral proximal intramedullary bernardo with 2 associated compression screw is noted. Joint spaces are normal. Osteopenia is present. No displaced fracture or bone destruction. Vascular calcification is seen. Impression: No acute process. Consider further evaluation for occult process is a persistent concern. Electronically signed by: Harshal Zavala MD (11/07/2019 11:30 AM) [id number]
--- NOTE | 2019-11-07 12:07 | PDOC3 ---
Discharge Summary Date of Admission: Nov 05, 2019 Date of Discharge: Nov 07, 2019 Follow-Up: 1-2 days Admitting Diagnosis comment: DISCHARGE= DX impression Falls - no fracture noted. CT negative as well. MRI would be more sensitive, but I would await PMR and PT evaluation prior to ordering MRI on ct No acute fractures identified. Sacroiliac joints, pubic symphysis and hip joints are well-maintained. Weakness - PT and OT to evaluate for skilled consideration COPD - prn nebs Severe protein calorie malnutrition - related to alzheimers and decreased appetite secondary to this. Back Facer to see Alzheimer's - seems fairly advanced, but no behavioral disturbances noted. H/o CAD on ASA and BB Hypertension - REMAINS LABILE Hypothyroidism - cont meds FEN - Cardiac PPX - lovenox FULL CODE Dispo - inpatient for 2 midnights. home with home health followup when medically stable BP CONTROL, FALL PRECAUTIONS INC NORVASC TO 5 MG PO BID 11/05 11/06 TO SNF BECAUSE ONLY 2 DAY STAY RATHER THAN 3 DAY, DUE TO COVID-19 DISASTER/EMERGENCY D/C PLANNING 32 MIN Discharge Recommendations * Shelter Unit Vitals Vitals Vital Signs Date Time Temp Pulse Resp B/P (MAP) Pulse Ox O2 Delivery O2 Flow Rate FiO2 11/07/19 08:39 64 126/77 11/07/19 07:25 Room Air 11/07/19 07:00 98.3 16 90 98.3 Physical Exam General: Alert, Oriented X3, Cooperative, No acute distress Lungs: Clear Abdomen: Normal bowel sounds, Soft, No tenderness, No hepatosplenomegaly, No masses Extremities: No clubbing, No cyanosis, No edema, Normal pulses, No tenderness/swelling Skin: No rashes, No breakdown, No significant lesion FINAL DIAGNOSIS Problems Medical Problems: (1) Right hip pain Status: Acute Brief Hospital Course Ms. Ramesh is a 74 old [sex] who presented with [FALL WITH HIP PAIN ] CONDITION AT DISCHARGE: Improved Discharge Medications Current Medications Morphine Sulfate (Morphine Sulfate) 2 mg 1X ONCE IV Last administered on 11/05/19at 17:00; Start 11/05/19 at 17:00; Stop 11/05/19 at 17:01; Status DC Ondansetron HCl (Zofran) 4 mg 1X ONCE IVP Last administered on 11/05/19at 16:59; Start 11/05/19 at 17:00; Stop 11/05/19 at 17:01; Status DC Ondansetron HCl (Zofran) 4 mg PRN Q8HRS PRN IV NAUSEA/VOMITING; Start 11/05/19 at 18:15; Stop 11/05/19 at 18:13; Status DC Morphine Sulfate (Morphine Sulfate) 2 mg Q6H PRN IV PAIN; Start 11/05/19 at 18:15; Stop 11/05/19 at 18:13; Status DC Morphine Sulfate (Morphine Sulfate) 2 mg PRN Q4HRS PRN IV PAIN; Start 11/05/19 at 18:15 Ondansetron HCl (Zofran) 4 mg PRN Q4HRS PRN IV NAUSEA/VOMITING; Start 11/05/19 at 18:15 Acetaminophen (Tylenol) 650 mg Q4H PO Last administered on 11/06/19at 12:19; Start 11/05/19 at 23:30; Stop 11/06/19 at 18:16; Status DC Amlodipine Besylate (Norvasc) 5 mg DAILY PO Last administered on 11/06/19at 08:33; Start 11/06/19 at 09:00; Stop 11/06/19 at 16:01; Status DC Aspirin (Ecotrin) 81 mg QPM PO Last administered on 11/06/19at 18:10; Start 11/06/19 at 18:00 Carvedilol (Coreg) 12.5 mg BIDWMEALS PO Last administered on 11/07/19at 08:38; Start 11/06/19 at 08:00 Levothyroxine Sodium (Synthroid) 25 mcg DAILY06 PO Last administered on 11/07/19at 06:09; Start 11/06/19 at 06:00 Mirtazapine (Remeron) 7.5 mg QHS PO Last administered on 11/06/19at 21:25; Start 11/05/19 at 23:30 Pantoprazole Sodium (Protonix) 40 mg DAILYAC PO Last administered on 11/07/19at 06:09; Start 11/06/19 at 07:30 Sertraline HCl (Zoloft) 50 mg QPM PO Last administered on 11/06/19at 18:11; Start 11/06/19 at 18:00 Trazodone HCl (Desyrel) 50 mg QHS PO Last administered on 11/06/19at 21:25; Start 11/05/19 at 23:30 Vitamin B Complex (Nikko B) 1 tab DAILY PO Last administered on 11/07/19at 08:38; Start 11/06/19 at 09:00 Enoxaparin Sodium (Lovenox 40mg Syringe) 30 mg Q24H SQ Last administered on 11/06/19at 08:33; Start 11/06/19 at 09:00; Stop 11/06/19 at 10:34; Status DC Enoxaparin Sodium (Lovenox 30mg Syringe) 30 mg Q24H SQ Last administered on 11/07/19at 08:39; Start 11/07/19 at 09:00 Amlodipine Besylate (Norvasc) 5 mg BID94 PO Last administered on 11/07/19at 08:39; Start 11/06/19 at 16:00 Acetaminophen (Tylenol) 650 mg PRN Q4HRS PRN PO pain Last administered on 11/06/19at 21:26; Start 11/06/19 at 18:15 Active Scripts Active Hydrocodone-Apap 5-325 (Hydrocodone Bit/Acetaminophen) 1 Tab Tablet 1 Tab PO PRN Q6HRS PRN 30 Days Tylenol (Acetaminophen) 325 Mg Tablet 650 Mg PO Q4H 30 Days Coumadin (Warfarin Sodium) 2.5 Mg Tablet 1 Tab PO DAILY 30 Days Reported Melatonin 3 Mg Tab.rapdis 1 Tab PO QHS 30 Days Trazodone Hcl 50 Mg Tablet 1 Tab PO QHS Adult Low Dose Aspirin Ec (Aspirin) 81 Mg Tablet. 81 Mg PO QPM Mirtazapine 7.5 Mg Tablet 1 Tab PO QHS 30 Days Zoloft (Sertraline Hcl) 50 Mg Tablet 50 Mg PO QPM Levothyroxine Sodium 25 Mcg Tablet 1 Tab PO DAILY Pantoprazole Sodium (Pantoprazole Sodium) 40 Mg Tablet. 40 Mg PO DAILYAC Megestrol Acetate 40 Mg Tablet 40 Mg PO BID Carvedilol (Carvedilol) 12.5 Mg Tablet 12.5 Mg PO BIDWMEALS Aspir-Low (Aspirin) 81 Mg Tablet. 1 Tab PO HS B Complex (Vitamin B Complex) 1 Each Tablet 1 Tab PO DAILY 30 Days Vitamin C (Ascorbic Acid) 500 Mg Capsule.er 1,000 Mg PO DAILY Centrum Silver Women Tablet (Multivits-Min/Iron/FA/Lutein) 1 Each Tablet 1 Each PO DAILY [L-Thyroxine] 25MG 25 Mg DAILY Carvedilol (Carvedilol) 6.25 Mg Tablet 6.25 Mg PO BIDWMEALS Amlodipine Besylate 5 Mg Tablet 5 Mg PO DAILY Vital Signs Vital Signs Date Time Temp Pulse Resp B/P (MAP) Pulse Ox O2 Delivery O2 Flow Rate FiO2 11/07/19 08:39 64 126/77 11/07/19 07:25 Room Air 11/07/19 07:00 98.3 16 90 98.3 Labs Laboratory Tests Test 11/06/19 17:15 White Blood Count 8.1 x10^3/uL (4.0-11.0) Red Blood Count 3.95 x10^6/uL (3.50-5.40) Hemoglobin 12.0 g/dL (12.0-15.5) Hematocrit 37.0 % (36.0-47.0) Mean Corpuscular Volume 94 fL (79-100) Mean Corpuscular Hemoglobin 30 pg (25-35) Mean Corpuscular Hemoglobin Concent 32 g/dL (31-37) Red Cell Distribution Width 15.4 % (11.5-14.5) Platelet Count 261 x10^3/uL (140-400) Neutrophils (%) (Auto) 67 % (31-73) Lymphocytes (%) (Auto) 21 % (24-48) Monocytes (%) (Auto) 7 % (0-9) Eosinophils (%) (Auto) 5 % (0-3) Basophils (%) (Auto) 1 % (0-3) Neutrophils # (Auto) 5.5 x10^3/uL (1.8-7.7) Lymphocytes # (Auto) 1.7 x10^3/uL (1.0-4.8) Monocytes # (Auto) 0.5 x10^3/uL (0.0-1.1) Eosinophils # (Auto) 0.4 x10^3/uL (0.0-0.7) Basophils # (Auto) 0.0 x10^3/uL (0.0-0.2) Sodium Level 140 mmol/L (136-145) Potassium Level 3.7 mmol/L (3.5-5.1) Chloride Level 105 mmol/L (98-107) Carbon Dioxide Level 23 mmol/L (21-32) Anion Gap 12 (6-14) Blood Urea Nitrogen 24 mg/dL (7-20) Creatinine 1.8 mg/dL (0.6-1.0) Estimated GFR (Cockcroft-Gault) 27.5 BUN/Creatinine Ratio 13 (6-20) Glucose Level 139 mg/dL (70-99) Calcium Level 8.6 mg/dL (8.5-10.1) Total Bilirubin 0.3 mg/dL (0.2-1.0) Aspartate Amino Transf (AST/SGOT) 14 U/L (15-37) Alanine Aminotransferase (ALT/SGPT) 13 U/L (14-59) Alkaline Phosphatase 88 U/L (46-116) Total Protein 6.4 g/dL (6.4-8.2) Albumin 2.7 g/dL (3.4-5.0) Albumin/Globulin Ratio 0.7 (1.0-1.7) Laboratory Tests Test 11/06/19 17:15 White Blood Count 8.1 x10^3/uL (4.0-11.0) Red Blood Count 3.95 x10^6/uL (3.50-5.40) Hemoglobin 12.0 g/dL (12.0-15.5) Hematocrit 37.0 % (36.0-47.0) Mean Corpuscular Volume 94 fL (79-100) Mean Corpuscular Hemoglobin 30 pg (25-35) Mean Corpuscular Hemoglobin Concent 32 g/dL (31-37) Red Cell Distribution Width 15.4 % (11.5-14.5) Platelet Count 261 x10^3/uL (140-400) Neutrophils (%) (Auto) 67 % (31-73) Lymphocytes (%) (Auto) 21 % (24-48) Monocytes (%) (Auto) 7 % (0-9) Eosinophils (%) (Auto) 5 % (0-3) Basophils (%) (Auto) 1 % (0-3) Neutrophils # (Auto) 5.5 x10^3/uL (1.8-7.7) Lymphocytes # (Auto) 1.7 x10^3/uL (1.0-4.8) Monocytes # (Auto) 0.5 x10^3/uL (0.0-1.1) Eosinophils # (Auto) 0.4 x10^3/uL (0.0-0.7) Basophils # (Auto) 0.0 x10^3/uL (0.0-0.2) Sodium Level 140 mmol/L (136-145) Potassium Level 3.7 mmol/L (3.5-5.1) Chloride Level 105 mmol/L (98-107) Carbon Dioxide Level 23 mmol/L (21-32) Anion Gap 12 (6-14) Blood Urea Nitrogen 24 mg/dL (7-20) Creatinine 1.8 mg/dL (0.6-1.0) Estimated GFR (Cockcroft-Gault) 27.5 BUN/Creatinine Ratio 13 (6-20) Glucose Level 139 mg/dL (70-99) Calcium Level 8.6 mg/dL (8.5-10.1) Total Bilirubin 0.3 mg/dL (0.2-1.0) Aspartate Amino Transf (AST/SGOT) 14 U/L (15-37) Alanine Aminotransferase (ALT/SGPT) 13 U/L (14-59) Alkaline Phosphatase 88 U/L (46-116) Total Protein 6.4 g/dL (6.4-8.2) Albumin 2.7 g/dL (3.4-5.0) Albumin/Globulin Ratio 0.7 (1.0-1.7) Allergies Allergies Coded Allergies Type Severity Reaction Last Updated Verified No Known Drug Allergies 06/27/19 No Disposition/Orders: Other (D/C TO SNF) EDITA HOGAN MD Nov 07, 2019 12:07
[2019-11-07] MEDS ORDERED: AMLO5TAB10 PO (12:14)
--- NOTE | 2019-11-07 12:15 | SNU/HH DC ---
DISCHARGE ORDERS DISCHARGE INFORMATION: FINAL DIAGNOSIS Problems Medical Problems: (1) Right hip pain Status: Acute CONDITION ON DISCHARGE: Stable CODE STATUS: Code Status: Full USP: SNF STAY <30 DAYS: Yes HOSPICE: HOSPICE: No HOSPICE EVAL & TREAT: No LTAC: ADMIT TO LTAC: No POST DISCHARGE ORDERS: ACTIVITY ORDERS: Activity as tolerated, Avoid exertion, Progressive ambulation WEIGHT BEARING STATUS: Other, see below BATHING ORDERS: Shower-keep dressing dry, No Tub Bath until see DIET AFTER DISCHARGE: Regular CHECKS AFTER DISCHARGE: CHECKS AFTER DISCHARGE: Check blood press - daily TREATMENT/EQUIPMENT ORDERS: ADAPTIVE EQUIPMENT NEEDED: Front wheeled walker, Walker Physical Therapy For: Evalulation/Treatment Occupational Therapy For: Evaluation/Treatment DISCHARGE MEDICATIONS: Home Meds Active Scripts Amlodipine Besylate (AMLODIPINE BESYLATE) 5 Mg Tablet, 5 MG PO BID94 for BLOOD PRESSURE for 30 Days, #60 TAB Prov:EDITA HOGAN MD 11/07/19 Hydrocodone Bit/Acetaminophen (HYDROCODONE-APAP 5-325 ) 1 Tab Tablet, 1 TAB PO PRN Q6HRS PRN for PAIN for 30 Days, #120 TAB 0 Refills Prov:ARABELLA ALCANTAR MD 07/04/19 Acetaminophen (TYLENOL) 325 Mg Tablet, 650 MG PO Q4H for PAIN for 30 Days, #360 TAB Prov:ARABELLA ALCANTAR MD 07/04/19 Reported Medications Melatonin (MELATONIN) 3 Mg Tab.rapdis, 1 TAB PO QHS for sleep for 30 Days, #30 TAB 0 Refills 11/05/19 Trazodone Hcl (TRAZODONE HCL) 50 Mg Tablet, 1 TAB PO QHS for insomnia, #30 TAB 11/05/19 Aspirin (ADULT LOW DOSE ASPIRIN EC) 81 Mg Tablet.dr, 81 MG PO QPM for antiplat, TAB.SR 11/05/19 Mirtazapine (MIRTAZAPINE) 7.5 Mg Tablet, 1 TAB PO QHS for antidepressant for 30 Days, #30 TAB 0 Refills 11/05/19 Sertraline Hcl (ZOLOFT) 50 Mg Tablet, 50 MG PO QPM for ANTI-DEPRESSANT, TAB 0 Refills 11/05/19 Levothyroxine Sodium (LEVOTHYROXINE SODIUM) 25 Mcg Tablet, 1 TAB PO DAILY for th yroid, #30 TAB 5 Refills 11/05/19 Pantoprazole Sodium (PANTOPRAZOLE SODIUM ) 40 Mg Tablet.dr, 40 MG PO DAILYAC for GERD, TAB 11/05/19 Carvedilol (CARVEDILOL ) 12.5 Mg Tablet, 12.5 MG PO BIDWMEALS for CARDIAC, TAB 11/05/19 Vitamin B Complex (B COMPLEX) 1 Each Tablet, 1 TAB PO DAILY for SUPPLEMENT for 30 Days, #30 TAB 0 Refills 06/27/19 Ascorbic Acid (VITAMIN C) 500 Mg Capsule.er, 1000 MG PO DAILY for SUPPLEMENT, CAP.SR 06/27/19 Multivits-Min/Iron/FA/Lutein (Centrum Silver Women Tablet) 1 Each Tablet, 1 EACH PO DAILY for SUPPLEMENT, TAB 06/27/19 Discontinued Reported Medications Megestrol Acetate (MEGESTROL ACETATE) 40 Mg Tablet, 40 MG PO BID for HORMONE, TAB 11/05/19 Aspirin (ASPIR-LOW) 81 Mg Tablet.dr, 1 TAB PO HS for CIRCULATION, #30 TAB 3 Refills 06/27/19 [L-Thyroxine] 25MG No Conflict Check, 25 MG DAILY for SUPPLEMENT 06/27/19 Carvedilol (CARVEDILOL ) 6.25 Mg Tablet, 6.25 MG PO BIDWMEALS for CARDIAC, TAB 06/27/19 Amlodipine Besylate (AMLODIPINE BESYLATE) 5 Mg Tablet, 5 MG PO DAILY for HTN, TAB 06/27/19 Discontinued Scripts Warfarin Sodium (COUMADIN) 2.5 Mg Tablet, 1 TAB PO DAILY for DVT for 30 Days, #30 TAB Prov:ARABELLA ALCANTAR MD 07/04/19 EDITA HOGAN MD Nov 07, 2019 12:15
--- NOTE | 2019-11-07 13:10 | NUR ---
Attempt made to [facility] for d/c report, no answer. Message left on voicemail to return call.
--- NOTE | 2019-11-07 13:20 | NUR ---
Dr. Starr contacted re: Hydrocodone Rx for pt. He stated he does not want to d/c pt on Hydrocodone.
--- NOTE | 2019-11-07 15:00 | NUR ---
Pt. transferred to [facility] via per transportation service.
== END 2019-11-07 15:00 | DRG 555 ==
LOC: ER 15:14 → 4 NORTH 18:06
PROVIDERS: ADMIT Internal Medicine; ATTEND Internal Medicine
DX: M25.551 Pain in right hip (principal); E43 Unspecified severe protein-calorie malnutrition; Z68.1 Body mass index [BMI] 19.9 or less, adult; I10 Essential (primary) hypertension; E03.9 Hypothyroidism, unspecified; G30.9 Alzheimer's disease, unspecified; F02.80 Dementia in other diseases classified elsewhere, unspecified severity, without behavioral disturbance, psychotic disturbance, mood disturbance, and anxiety; Z96.642 Presence of left artificial hip joint; I25.10 Atherosclerotic heart disease of native coronary artery without angina pectoris; J44.9 Chronic obstructive pulmonary disease, unspecified; K57.90 Diverticulosis of intestine, part unspecified, without perforation or abscess without bleeding; M51.36 Other intervertebral disc degeneration, lumbar region; F31.9 Bipolar disorder, unspecified; M19.90 Unspecified osteoarthritis, unspecified site; W19.XXXA Unspecified fall, initial encounter; Y93.89 Activity, other specified; Y92.89 Other specified places as the place of occurrence of the external cause; Y99.8 Other external cause status; Z87.891 Personal history of nicotine dependence; Z90.710 Acquired absence of both cervix and uterus; Z82.49 Family history of ischemic heart disease and other diseases of the circulatory system; Z80.8 Family history of malignant neoplasm of other organs or systems; Z82.0 Family history of epilepsy and other diseases of the nervous system
CPT/HCPCS: 36415; 72131; 72192; 73502; 80053; 85025; 96374; 96375; 99285; J1650; J2270; J2405; 97530; G0378

== ENCOUNTER 2020-04-18 06:55 | Outpatient (CLI) | payer MEDICARE, OTHER ==
[~2020-04-18] VITALS: Ht 167.6 cm; Wt 44.0 kg
[~2020-04-18 06:55] MED LIST changes: +ASPI-424 PO; +CARV12.511 PO; +LEVO25TA4 PO; +MEGE40TA3 PO; +MELA3TAB43 PO; +MIRT7.5T8 PO; +PANT40TA77 PO; +SERT50TA PO; +TRAZ-118 PO; +WARF2.5T2 PO; -WARF2.5T83 PO
[2020-04-18 07:30] VITALS: BP 141/73
[2020-04-18 07:36] LABS: BASO # 0.1 x10^3/uL (0.0-0.2); BASO % 1 % (0-3); EOS # 0.2 x10^3/uL (0.0-0.7); EOS % 4 % (0-3); HEMATOCRIT 37.5 % (36.0-47.0); HEMOGLOBIN 12.2 g/dL (12.0-15.5); LYMPH # 1.4 x10^3/uL (1.0-4.8); LYMPH % 21 % (24-48); MEAN CORPUSCULAR HEMOGLOBIN 30 pg (25-35); MEAN CORPUSCULAR HGB CONC 33 g/dL (31-37); MEAN CORPUSCULAR VOLUME 93 fL (79-100); MONO # 0.6 x10^3/uL (0.0-1.1); MONO % 8 % (0-9); NEUT # 4.6 x10^3/uL (1.8-7.7); NEUT % 67 % (31-73); PLATELET COUNT 241 x10^3/uL (140-400); RED BLOOD COUNT 4.04 x10^6/uL (3.50-5.40); RED CELL DISTRIBUTION WIDTH 14.3 % (11.5-14.5); WHITE BLOOD COUNT 6.9 x10^3/uL (4.0-11.0)
[2020-04-18 07:42] LABS: CREATININE 1.6 mg/dL (0.6-1.0); GFR 31.4; POTASSIUM 3.5 mmol/L (3.5-5.1)
[2020-04-18 07:46] LABS: PROTHROMBIN TIME PATIENT 11.8 SEC (11.7-14.0)
[2020-04-18] MEDS ORDERED: LIDOCAINE WITH 8.4% SOD BICARB 3 ML DISP.SYRIN. ONE (08:29)
[2020-04-18] MEDS ORDERED: IODIXANOL 320 MG/ML 50ML VIAL. ONE (08:31)
[2020-04-18] MEDS ORDERED: IODIXANOL 320 MG/ML 50ML VIAL. IART ONE (08:45)
[2020-04-18] MEDS ORDERED: CONTRAST GIVEN. MC PRN (08:45)
[2020-04-18] MEDS ORDERED: LIDOCAINE WITH 8.4% SOD BICARB 3 ML DISP.SYRIN. IJ ONE (08:45)
[2020-04-18 09:15] VITALS: BP 151/72
[2020-04-18 09:30] VITALS: BP 150/83
[2020-04-18 09:45] VITALS: BP 132/73
[2020-04-18 10:00] VITALS: BP 140/72
[2020-04-18] MEDS ORDERED: PANT20TA2 PO (10:05)
[2020-04-18] MEDS ORDERED: OLAN2.5T3 PO (10:05)
[2020-04-18] MEDS ORDERED: GABA-585 PO (10:05)
[2020-04-18] MEDS ORDERED: IPRA4AER IH (10:05)
[2020-04-18] MEDS ORDERED: LACT100C2 PO (10:05)
[2020-04-18] MEDS ORDERED: ALLO100T PO (10:05)
[2020-04-18] MEDS ORDERED: AZIT250T6 PO (10:05)
[2020-04-18] MEDS ORDERED: CEFD300C PO (10:05)
[2020-04-18 10:15] VITALS: BP 146/72
--- NOTE | 2020-04-18 10:51 | NUR ---
Discharge Note: BRIAN SUERO Discharge instructions and discharge home medications reviewed with Family Member and a copy given. All questions have been answered and understanding verbalized. Report called to [facility], spoke with KAMILA Lane. Patient ate breakfast with no issues. The following instructions and handouts were given: IVC filters and surgical site infection. Discontinued lines and drains: No IV this visit. No sedation for procedure. Patient discharged back to [facility] with spouse, daughter and Elham from [facility] via transportation van.
--- NOTE | 2020-04-18 11:45 | RAD ---
04/18/2020 9:36 AM Procedures: 1. Inferior venacavogram 2. Placement of an IVC filter Clinical Indication: History of pulmonary embolism with contraindication to anticoagulation The procedure was explained in its entirety to the patient or the patients designated accounting representative by a member of the treatment team, including a discussion of the risks, benefits and commonly accepted alternatives to the procedure, as well as the expected consequences of no therapy whatsoever. Discussion of the risks included, but was not limited to, those that are most frequent and those that are rare but possibly severe or life-threatening, as well as the possibility of unforeseen complications. All elements of maximal sterile barrier technique including the use of a cap, mask, sterile gown, sterile gloves, large sterile sheet, appropriate hand hygiene, and 2% chlorhexidine for cutaneous antisepsis (or acceptable alternative antiseptic per current guidelines) were followed for this procedure. Total fluoroscopy time: 0.7 min Dose area product: 14 Gycm2 Impression: The right neck was prepped and draped using maximal sterile technique and one percent Xylocaine was used for local anesthesia. All elements of maximum sterile barrier technique was utilized. Under ultrasound guidance, a singlewall puncture was made into the right internal jugular vein followed by placement of a five Scottish catheter into the distal IVC. An ultrasound image of the right neck was saved and sent to PACS. Sheath was delivered into the IVC and a venogram performed. Renal inflow was identified. No evidence of thrombus or other focal abnormality is seen. Under fluoroscopic guidance, a intact permanent IVC filter was deployed in an infrarenal location. The filter is well seated. The sheath was removed. Manual pressure was held. Sterile dressings were applied. Impression: IVC filter placement
== END 2020-04-18 10:30 | disposition home or self-care (01) ==
LOC: INTRAD 06:55
PROVIDERS: ATTEND Internal Medicine
DX: I26.99 Other pulmonary embolism without acute cor pulmonale (principal); J44.9 Chronic obstructive pulmonary disease, unspecified; I10 Essential (primary) hypertension; Z91.81 History of falling; Z86.711 Personal history of pulmonary embolism; Z87.891 Personal history of nicotine dependence; Z79.82 Long term (current) use of aspirin; Z79.899 Other long term (current) drug therapy
CPT/HCPCS: 36415; 37191; 80048; 85025; 85610; C1769; C1892; J3490; Q9967; 76937